=== PATIENT | female | born 1965 | race Caucasian/White ===

== ENCOUNTER 2017-07-21 14:05 | Inpatient (IN) | payer MEDICAID ==
[~2017-07-21] VITALS: Ht 172.7 cm; Wt 63.0 kg
[2017-07-21] MEDS ORDERED: Morphine Sulfate 4mg/ml Inj IVP ONE (14:45)
[2017-07-21 15:44] LABS: BASOPHILS % (AUTO) 0.6 % (0.0-2.0); EOSINOPHILS % (AUTO) 0.3 % (0.0-3.0); LYMPHOCYTES % (AUTO) 12.3 % (20.0-45.0); MEAN CORPUSCULAR HEMOGLOBIN 33.1 PG (27.0-31.0); MEAN CORPUSCULAR HGB CONC 32.5 G/DL (32.0-36.0); MEAN CORPUSCULAR VOLUME 102 FL (80-99); MEAN PLATELET VOLUME 6.7 FL (6.5-10.1); MONOCYTES % (AUTO) 3.3 % (1.0-10.0); NEUTROPHILS % (AUTO) 83.6 % (45.0-75.0); PLATELET COUNT 268 K/UL (150-450); RED BLOOD COUNT 4.07 M/UL (4.20-5.40); RED CELL DISTRIBUTION WIDTH 14.6 % (11.6-14.8); WHITE BLOOD COUNT 15.7 K/UL (4.8-10.8)
[2017-07-21] MEDS ORDERED: HYDROmorphone 1mg/ml Carpuject IVP ONE (15:45)
[2017-07-21 16:01] LABS: ALANINE AMINOTRANSFERASE 17 U/L (12-78); ALBUMIN/GLOBULIN RATIO 1.4 (1.0-2.7); ANION GAP 11 mmol/L (5-15); ASPARTATE AMINO TRANSFERASE 25 U/L (15-37); CALCIUM 9.4 MG/DL (8.5-10.1); CARBON DIOXIDE 25 MMOL/L (21-32); CHLORIDE 103 MMOL/L (98-107); CREATININE 0.5 MG/DL (0.55-1.30); GLOMERULAR FILTRATION RATE > 60 mL/min (>60); POTASSIUM 3.7 MMOL/L (3.5-5.1); SODIUM 139 MMOL/L (136-145); TOTAL PROTEIN 7.2 G/DL (6.4-8.2)
[2017-07-21 16:11] LABS: AMYLASE 1413 U/L (25-115); LIPASE 11922 U/L (73-393)
--- NOTE | 2017-07-21 17:30 | Emergency Room Report ---
History of Present Illness General Chief Complaint: Abdominal Pain Source: Patient Present Illness HPI The patient is a 52-year-old female presenting for abdominal pain. She admits to a history of acute pancreatitis diagnosed 3 months prior. She denies known cause for pancreatitis and states that she has not been on any treatment for it. She states abdominal pain began 2 hours prior to arrival described as a sharp 9/10 pain to the mid upper abdomen and radiates to the mid back. She also admits to nausea and vomiting after the pain again. No known provoking relieving factors. She denies other symptoms including fever, chills, shortness of breath, chest pain, dysuria, vaginal discharge, diarrhea, constipation Allergies: Coded Allergies: No Known Allergies (Unverified , 07/21/17) Patient History Past Medical History: see triage record Reviewed Nursing Documentation: PMH: Agreed, PSxH: Agreed Nursing Documentation-PMH Hx Gastrointestinal Problems: Yes - Pancreatitis Review of Systems All Other Systems: negative except mentioned in HPI Physical Exam Vital Signs Date Time Temp Pulse Resp B/P (MAP) Pulse Ox O2 Delivery O2 Flow Rate FiO2 07/21/17 14:16 98.4 88 18 150/90 98 Room Air Sp02 EP Interpretation: reviewed, normal General Appearance: no apparent distress, alert, GCS 15, non-toxic Head: normocephalic, atraumatic Eyes: bilateral eye normal inspection, bilateral eye PERRL ENT: hearing grossly normal, normal pharynx, no angioedema, normal voice Neck: full range of motion, supple/symm/no masses Respiratory: chest non-tender, lungs clear, normal breath sounds, speaking full sentences Cardiovascular #1: regular rate, rhythm, no edema Gastrointestinal: normal bowel sounds, soft, no mass, tenderness - epigastric Rectal: deferred Genitourinary: normal inspection, no CVA tenderness Musculoskeletal: back normal, gait/station normal, normal range of motion, non- tender Neurologic: alert, oriented x3, responsive, motor strength/tone normal, sensory intact, speech normal Psychiatric: judgement/insight normal, memory normal, mood/affect normal, no suicidal/homicidal ideation Skin: normal color, no rash, warm/dry, well hydrated Medical Decision Making PA Attestation Dr. Ng is my supervising physician. Patient management was discussed with my supervising physician Diagnostic Impression: Primary Impression: Pancreatitis Qualified Codes: K85.90 - Acute pancreatitis without necrosis or infection, unspecified ER Course The patient is a 52-year-old female presenting for abdominal pain. Differential diagnoses considered include but not limited to gastritis, pancreatitis, appendicitis, UTI, cholecystitis, among others PE: Afebrile. NAD Abdomen is soft. There is tenderness to palpation over the epigastric region. Normal bowel sounds. Nondistended. No CVA tenderness Blood work is consistent with acute pancreatitis with significantly elevated lipase. There is also leukocytosis. The patient is given IV fluids and pain medication and is feeling significantly better. She was informed of these results. She will be admitted to this hospital in serious but stable condition. Dr. Ng has spoken with admitting doctor. Laboratory Tests Test 07/21/17 15:00 White Blood Count 15.7 K/UL (4.8-10.8) H Red Blood Count 4.07 M/UL (4.20-5.40) L Hemoglobin 13.5 G/DL (12.0-16.0) Hematocrit 41.4 % (37.0-47.0) Mean Corpuscular Volume 102 FL (80-99) H Mean Corpuscular Hemoglobin 33.1 PG (27.0-31.0) H Mean Corpuscular Hemoglobin Concent 32.5 G/DL (32.0-36.0) Red Cell Distribution Width 14.6 % (11.6-14.8) Platelet Count 268 K/UL (150-450) Mean Platelet Volume 6.7 FL (6.5-10.1) Neutrophils (%) (Auto) 83.6 % (45.0-75.0) H Lymphocytes (%) (Auto) 12.3 % (20.0-45.0) L Monocytes (%) (Auto) 3.3 % (1.0-10.0) Eosinophils (%) (Auto) 0.3 % (0.0-3.0) Basophils (%) (Auto) 0.6 % (0.0-2.0) Prothrombin Time 10.0 SEC (9.30-11.50) Prothrombin Time INR 1.0 (0.9-1.1) PTT 23 SEC (23-33) Sodium Level 139 MMOL/L (136-145) Potassium Level 3.7 MMOL/L (3.5-5.1) Chloride Level 103 MMOL/L (98-107) Carbon Dioxide Level 25 MMOL/L (21-32) Anion Gap 11 mmol/L (5-15) Blood Urea Nitrogen 17 mg/dL (7-18) Creatinine 0.5 MG/DL (0.55-1.30) L Estimate Glomerular Filtration Rate > 60 mL/min (>60) Glucose Level 151 MG/DL (74-106) H Calcium Level 9.4 MG/DL (8.5-10.1) Total Bilirubin 0.3 MG/DL (0.2-1.0) Aspartate Amino Transferase (AST) 25 U/L (15-37) Alanine Aminotransferase (ALT) 17 U/L (12-78) Alkaline Phosphatase 74 U/L (46-116) Total Protein 7.2 G/DL (6.4-8.2) Albumin 4.2 G/DL (3.4-5.0) Globulin 3.0 g/dL Albumin/Globulin Ratio 1.4 (1.0-2.7) Amylase Level 1413 U/L (25-115) *H Lipase 44277 U/L (73-393) H Lab Results Impression consistent with acute pancreatitis CT/MRI/US Diagnostic Results CT/MRI/US Diagnostic Results : Imaging Test Ordered: ABD US Impression There is free fluid in the pancreatic area. Please see official report Last Vital Signs Date Time Temp Pulse Resp B/P (MAP) Pulse Ox O2 Delivery O2 Flow Rate FiO2 07/21/17 14:16 98.4 88 18 150/90 98 Room Air Status: improved Disposition: ADMITTED INPATIENT Condition: Serious Referrals: NOT CHOSEN IPA/,REFERRING (PCP) PHOENIX WORLEY Jul 21, 2017 17:30
[2017-07-21 17:37] VITALS: BP 150/90
[2017-07-21] MEDS ORDERED: Hydromorphone 0.5mg/0.5ml inj IVP ONE (18:00)
--- NOTE | 2017-07-21 18:00 | Diagnostic Imaging Report ---
Indication: Epigastric pain, elevated amylase and lipase Technique: Curry-scale and duplex images of the upper abdomen were obtained Comparison: None Findings: Gallbladder is unremarkable, without stones, wall thickening, nor pericholecystic fluid. Sonographic Brantley's sign is positive Common bile duct measures 11 mm in diameter. No intrahepatic biliary ductal dilatation. Liver demonstrates normal echogenicity. A cyst is seen within the left hepatic lobe which measures 18 mm in diameter. Portal vein and hepatic veins are patent. The pancreas is somewhat prominent. No discrete mass demonstrated. Fluid is seen in the ana maria hepatis region. Spleen is unremarkable. Left kidney measures 9.8 cm in length. Right kidney measures 10.5 cm length. Both kidneys demonstrate normal echogenicity. There is no hydronephrosis. No focal abnormality . Non-aneurysmal abdominal aorta . Impression: Prominent pancreas, fluid in the ana maria hepatis, likely related to stated clinical history of acute pancreatitis Negative for gallstones. Positive sonographic Brantley's sign may be due to the adjacent pancreatic abnormality, but the possibility of acalculous acute cholecystitis should be considered. Consider nuclear medicine hepatic biliary scanning for further evaluation if clinically indicated Dilated common bile duct. Downstream obstructive process not excludable. Consider MRCP for better characterization Incidental finding left lobar liver cyst
[2017-07-21] MEDS ORDERED: NORCO 5-325 TA1 EACH ORAL (18:39)
[2017-07-21] MEDS ORDERED: OMEPRAZOLE40 M1 ORAL (18:39)
[2017-07-21] MEDS ORDERED: LEXAPRO10 MG ORAL (18:39)
[2017-07-21 18:48] VITALS: BP 141/89
[2017-07-21] MEDS ORDERED: Nitroglycerin Subl 0.4mg tab SL PRN (21:15)
[2017-07-21] MEDS ORDERED: Mylanta II UD 30ml ORAL PRN (21:15)
[2017-07-21] MEDS ORDERED: Miralax 17gm pkt ORAL PRN (21:15)
[2017-07-21] MEDS ORDERED: Morphine Sulfate 2mg/ml Inj IVP PRN (21:15)
[2017-07-21] MEDS ORDERED: LORazepam Inj 2mg/ml 1ml IV PRN (21:15)
[2017-07-21] MEDS ORDERED: Norco 5mg/325mg tab ORAL PRN (21:15)
[2017-07-21] MEDS: HYDROmorphone 1mg/ml Carpuject IVP PRN (22:15)
[2017-07-21] MEDS: D5 1/2NS 1,000 ML IV SCH (22:15)
[2017-07-21 23:40] VITALS: BP 162/83
[2017-07-22] MEDS: HYDROmorphone 1mg/ml Carpuject IVP PRN ×8 (01:22→23:06)
[2017-07-22 04:36] VITALS: BP 147/81
[2017-07-22 07:08] LABS: MEAN CORPUSCULAR HEMOGLOBIN 35.2 PG (27.0-31.0); MEAN CORPUSCULAR VOLUME 101 FL (80-99); MEAN PLATELET VOLUME 7.3 FL (6.5-10.1); PLATELET COUNT 222 K/UL (150-450); RED BLOOD COUNT 3.62 M/UL (4.20-5.40); RED CELL DISTRIBUTION WIDTH 14.2 % (11.6-14.8); WHITE BLOOD COUNT 13.4 K/UL (4.8-10.8)
[2017-07-22] MEDS: Metoclopramide 10mg/2ml Inj IVP PRN ×2 (07:13→16:43)
[2017-07-22 07:52] LABS: ALANINE AMINOTRANSFERASE 17 U/L (12-78); ALBUMIN/GLOBULIN RATIO 1.3 (1.0-2.7); AMYLASE 218 U/L (25-115); ANION GAP 9 mmol/L (5-15); ASPARTATE AMINO TRANSFERASE 17 U/L (15-37); CALCIUM 8.6 MG/DL (8.5-10.1); CARBON DIOXIDE 26 MMOL/L (21-32); CHLORIDE 103 MMOL/L (98-107); CREATININE 0.5 MG/DL (0.55-1.30); GLOMERULAR FILTRATION RATE > 60 mL/min (>60); POTASSIUM 3.2 MMOL/L (3.5-5.1); SODIUM 138 MMOL/L (136-145); TOTAL PROTEIN 6.5 G/DL (6.4-8.2)
[2017-07-22 07:53] LABS: LIPASE 2152 U/L (73-393)
[2017-07-22] MEDS: Pantoprazole Inj IV SCH (08:19)
[2017-07-22] MEDS: D5 1/2NS 1,000 ML IV SCH (08:19)
[2017-07-22] MEDS: Escitalopram Oxalate 5mg tab ORAL SCH (08:20)
[2017-07-22 08:30] VITALS: BP 155/77
[2017-07-22] MEDS: Heparin 5000 units/ml inj SUBQ SCH ×2 (08:30→20:55)
[2017-07-22 08:56] LABS: BAND NEUTROPHILS % (MANUAL) 1 % (0-8); BASOPHILS % (MANUAL) 0 % (0-2); EOSINOPHILS % (MANUAL) 0 % (0-3); LYMPHOCYTES % (MANUAL) 4 % (20-45); NEUTROPHILS % (MANUAL) 89 % (45-75); PLATELET ESTIMATE ADEQUATE; PLATELET MORPHOLOGY NORMAL; TOTAL CELLS COUNTED 100
[2017-07-22 09:06] VITALS: BP 155/77
[2017-07-22 09:06] LABS: MACROCYTES 1+
[2017-07-22 09:36] LABS: CHOLESTEROL 211 MG/DL (< 200); CHOLESTEROL/HDL RATIO 2.5 (3.3-4.4)
[2017-07-22] MEDS ORDERED: Potassium Chloride 40 MEQ in Sodium Chloride 500ML 550 ML IV ONE (11:00)
[2017-07-22 12:37] VITALS: BP 150/89
--- NOTE | 2017-07-22 15:25 | GI Initial Consult Note ---
History of Present Illness General Date patient seen: Jul 22, 2017 Time patient seen: 14:00 Reason for Hospitalization: Abdominal Pain Referring physician: SANTHOSH BARKER Reason for Consultation: PANCREATITIS Present Illness HPI The patient is a 52-year-old female presenting for abdominal pain. She admits to a history of acute pancreatitis diagnosed 3 months prior. She denies known cause for pancreatitis and states that she has not been on any treatment for it. She states abdominal pain began 2 hours prior to arrival described as a sharp 9/10 pain to the mid upper abdomen and radiates to the mid back. She also admits to nausea and vomiting after the pain again. No known provoking relieving factors. She denies other symptoms including fever, chills, shortness of breath, chest pain, dysuria, vaginal discharge, diarrhea, constipation. GI consulted for pancreatitis. HPI as noted above. Pt seen on floor, awake A& Ox4 NAD with no active s/sx of N/V/D. C/o LUQ abdominal pain 7/10. Currently NPO + IVFs. Per patient, this is her 3rd episode of pancreatitis. Denies any drug use. Social tobacco and ETOH use. Patient presents with elevated lipase 12k+ and CBD dilation on U/S. She states she was suppose to have an EUS scheduled for a ?pancreatic mass prior but never got around to do it. No leukocytosis noted. Home Meds Reported Medications Hydrocodone Bit/Acetaminophen 5-325* ([place] 5-325*) 1 Each Tablet, 1 TAB ORAL Q6H Y for For Pain, #10 TAB 0 Refills 07/21/17 Escitalopram Oxalate* (LEXAPRO*) 10 Mg Tablet, 5 MG ORAL DAILY, TAB 07/21/17 Omeprazole (OMEPRAZOLE) 40 Mg Capsule.dr, 40 MG ORAL DAILY, CAP 07/21/17 Med list reviewed/reconciled: Yes Allergies: Coded Allergies: No Known Allergies (Unverified , 07/21/17) Patient History History Provided By: Patient, Medical Record PMH Narrative Past Medical History: see triage record Reviewed Nursing Documentation: PMH: Agreed, PSxH: Agreed Nursing Documentation-PMH Hx Gastrointestinal Problems: Yes - Pancreatitis Social History: Reports: smoking - on chantix, alcohol use - social Review of Systems All Other Systems: negative except mentioned in HPI Physical Exam Vital Signs Date Time Temp Pulse Resp B/P (MAP) Pulse Ox O2 Delivery O2 Flow Rate FiO2 07/21/17 14:16 98.4 88 18 150/90 98 Room Air Sp02 EP Interpretation: reviewed Labs Laboratory Tests Test 07/22/17 04:50 07/22/17 10:00 White Blood Count 13.4 K/UL (4.8-10.8) H Red Blood Count 3.62 M/UL (4.20-5.40) L Hemoglobin 12.7 G/DL (12.0-16.0) Hematocrit 36.4 % (37.0-47.0) L Mean Corpuscular Volume 101 FL (80-99) H Mean Corpuscular Hemoglobin 35.2 PG (27.0-31.0) H Mean Corpuscular Hemoglobin Concent 35.0 G/DL (32.0-36.0) Red Cell Distribution Width 14.2 % (11.6-14.8) Platelet Count 222 K/UL (150-450) Mean Platelet Volume 7.3 FL (6.5-10.1) Neutrophils (%) (Auto) % (45.0-75.0) Lymphocytes (%) (Auto) % (20.0-45.0) Monocytes (%) (Auto) % (1.0-10.0) Eosinophils (%) (Auto) % (0.0-3.0) Basophils (%) (Auto) % (0.0-2.0) Differential Total Cells Counted 100 Neutrophils % (Manual) 89 % (45-75) H Lymphocytes % (Manual) 4 % (20-45) L Monocytes % (Manual) 6 % (1-10) Eosinophils % (Manual) 0 % (0-3) Basophils % (Manual) 0 % (0-2) Band Neutrophils 1 % (0-8) Platelet Estimate Adequate Platelet Morphology Normal Macrocytosis 1+ Activated Partial Thromboplast Time 25 SEC (23-33) Sodium Level 138 MMOL/L (136-145) Potassium Level 3.2 MMOL/L (3.5-5.1) L Chloride Level 103 MMOL/L (98-107) Carbon Dioxide Level 26 MMOL/L (21-32) Anion Gap 9 mmol/L (5-15) Blood Urea Nitrogen 15 mg/dL (7-18) Creatinine 0.5 MG/DL (0.55-1.30) L Estimat Glomerular Filtration Rate > 60 mL/min (>60) Glucose Level 148 MG/DL (74-106) H Calcium Level 8.6 MG/DL (8.5-10.1) Total Bilirubin 0.3 MG/DL (0.2-1.0) Aspartate Amino Transf (AST/SGOT) 17 U/L (15-37) Alanine Aminotransferase (ALT/SGPT) 17 U/L (12-78) Alkaline Phosphatase 66 U/L (46-116) Total Protein 6.5 G/DL (6.4-8.2) Albumin 3.7 G/DL (3.4-5.0) Globulin 2.8 g/dL Albumin/Globulin Ratio 1.3 (1.0-2.7) Triglycerides Level 107 MG/DL (0-200) Cholesterol Level 211 MG/DL (< 200) H LDL Cholesterol 112 mg/dL (<100) H HDL Cholesterol 84 MG/DL (40-60) H Cholesterol/HDL Ratio 2.5 (3.3-4.4) L Amylase Level 218 U/L (25-115) H Lipase 2152 U/L (73-393) H Urine Opiates Screen Positive (NEGATIVE) H Urine Barbiturates Screen Negative (NEGATIVE) Phencyclidine (PCP) Screen Negative (NEGATIVE) Urine Amphetamines Screen Negative (NEGATIVE) Urine Benzodiazepines Screen Positive (NEGATIVE) H Urine Cocaine Screen Negative (NEGATIVE) Urine Marijuana (THC) Screen Negative (NEGATIVE) General Appearance: well appearing, no apparent distress, alert Head: normocephalic EENT: PERRL/EOMI, normal ENT inspection Neck: normal inspection, full range of motion, supple Respiratory: lungs clear, normal breath sounds, no respiratory distress Cardiovascular: normal rate Gastrointestinal: soft, normal bowel sounds Genitourinary: no CVA tenderness Musculoskeletal: normal inspection, back normal Neurologic: normal inspection, alert, oriented x3, responsive Psychiatric: normal inspection, judgement/insight normal, memory normal Skin: normal inspection, normal color, no rash, warm/dry Lymphatic: normal inspection, no adenopathy Current Medications Current Medications Medications (Trade) Dose Ordered Sig/Kwesi Route PRN Reason Start Time Stop Time Status Last Admin Dose Admin Acetaminophen (Tylenol) 650 mg Q4H PRN ORAL fever 07/21/17 21:15 08/20/17 21:14 Acetaminophen/ Hydrocodone Bitart ([place] 5/325) 1 tab Q6H PRN ORAL For Pain Scale 4-6 07/21/17 21:15 07/28/17 21:14 Al Hydroxide/Mg Hydroxide (Mylanta II) 30 ml Q6H PRN ORAL dyspepsia 07/21/17 21:15 08/20/17 21:14 Dextrose (Dextrose 50%) STAT PRN IV Hypoglycemia 07/21/17 21:15 08/20/17 21:14 Dextrose/Sodium Chloride 1,000 ml @ 75 mls/hr [id number] IV 07/21/17 22:00 08/20/17 21:59 07/22/17 08:19 Diphenhydramine HCl (Benadryl) 25 mg Q6H PRN ORAL Itching/Pruritis 07/21/17 21:15 08/20/17 21:14 Escitalopram Oxalate (Lexapro) 5 mg DAILY ORAL 07/22/17 09:00 08/21/17 08:59 07/22/17 08:20 Heparin Sodium (Porcine) (Heparin 5000 units/ml) 5,000 units EVERY 12 HOURS SUBQ 07/22/17 09:00 08/21/17 08:59 07/22/17 08:30 Hydromorphone HCl (Dilaudid) 1 mg Q3H PRN IVP Severe Pain (Pain Scale 7-10) 07/22/17 10:30 07/29/17 10:29 07/22/17 13:42 Lorazepam (Ativan 2mg/ml 1ml) 1 mg Q4H PRN IV agitation 07/21/17 21:15 07/28/17 21:14 Metoclopramide HCl (Reglan) 10 mg Q6H PRN IVP SEVERE NAUSEA 07/21/17 21:15 08/20/17 21:14 07/22/17 07:13 Nitroglycerin (Ntg) 0.4 mg Q5M X 3 DOSES PRN SL Prn Chest Pain 07/21/17 21:15 08/20/17 21:14 Ondansetron HCl (Zofran) 4 mg Q6H PRN IVP Nausea & Vomiting 07/21/17 21:15 08/20/17 21:14 07/22/17 10:31 Pantoprazole (Protonix) 40 mg DAILY IV 07/22/17 09:00 08/21/17 08:59 07/22/17 08:19 Polyethylene Glycol (Miralax) 17 gm HSPRN PRN ORAL Constipation 07/21/17 21:15 08/20/17 21:14 Promethazine HCl (Phenergan) 25 mg Q8H PRN IV refractory nausea 07/21/17 21:15 08/20/17 21:14 Temazepam (Restoril) 15 mg HSPRN PRN ORAL Insomnia 07/21/17 21:15 07/28/17 21:14 07/21/17 23:00 GI: Plan Problems: (1) Pancreatitis Plan abdominal U/S reviewed >> CBD dilation 11mm elevated lipase over 12k!, now 2200. utox unremarkable triglyceride level WNL maintain strict NPO + IVFs pain mgmt ordered MRCP ordered [id number] ppi fu labs Discussed with Dr. Contreras. Thank you for this patient referral, we will follow. Fina Leal N.P. Jul 22, 2017 15:25
[2017-07-22 16:02] VITALS: BP 148/85
--- NOTE | 2017-07-22 16:37 | History and Physical ---
History of Present Illness General Date patient seen: Jul 22, 2017 Reason for Hospitalization: Abdominal Pain Present Illness HPI 52 year old female with hx of reucrrent pancreatitis, visiting from [place], presented to ER with CC of abdominal pain and bloating. Her amylase was in thousands and she is admitted for further evaluation. Allergies: Coded Allergies: No Known Allergies (Unverified , 07/21/17) Medication History Scheduled Escitalopram Oxalate* (Lexapro*), 5 MG ORAL DAILY, (Reported) Omeprazole (Omeprazole), 40 MG ORAL DAILY, (Reported) Scheduled PRN Hydrocodone Bit/Acetaminophen 5-325* ([place] 5-325*), 1 TAB ORAL Q6H PRN for For Pain, (Reported) Patient History Healthcare decision maker N Resuscitation status Full Code Advanced Directive on File No Past Medical/Surgical History Past Medical/Surgical History: (1) Pancreatitis Review of Systems All Other Systems: negative except mentioned in HPI Physical Exam General Appearance: WD/WN Lines, tubes and drains: peripheral, central line HEENT: normocephalic, atraumatic Neck: non-tender, normal alignment Respiratory/Chest: chest wall non-tender, lungs clear Abdomen: non tender Genitourinary/Rectal: normal genital exam Last 24 Hour Vital Signs Date Time Temp Pulse Resp B/P (MAP) Pulse Ox O2 Delivery O2 Flow Rate FiO2 07/22/17 16:02 98.2 95 18 148/85 97 Room Air 07/22/17 12:37 97.2 92 18 150/89 97 Room Air 07/22/17 08:30 98.1 81 18 155/77 97 Room Air 07/22/17 04:36 97.9 94 18 147/81 Room Air 07/21/17 23:40 98.1 88 18 162/83 96 Room Air 07/21/17 18:48 98.4 71 18 141/89 98 Room Air 07/21/17 18:39 98.4 76 18 150/90 98 Room Air 07/21/17 18:16 98.4 07/21/17 17:37 98.4 76 18 150/90 98 Room Air 07/21/17 17:24 98.4 07/21/17 17:24 98.4 Intake and Output 07/22/17 07/23/17 19:00 07:00 Intake Total 795.0 ml Balance 795.0 ml Intake IV Total 795.0 ml Laboratory Tests Test 07/22/17 04:50 07/22/17 10:00 White Blood Count 13.4 K/UL (4.8-10.8) H Red Blood Count 3.62 M/UL (4.20-5.40) L Hemoglobin 12.7 G/DL (12.0-16.0) Hematocrit 36.4 % (37.0-47.0) L Mean Corpuscular Volume 101 FL (80-99) H Mean Corpuscular Hemoglobin 35.2 PG (27.0-31.0) H Mean Corpuscular Hemoglobin Concent 35.0 G/DL (32.0-36.0) Red Cell Distribution Width 14.2 % (11.6-14.8) Platelet Count 222 K/UL (150-450) Mean Platelet Volume 7.3 FL (6.5-10.1) Neutrophils (%) (Auto) % (45.0-75.0) Lymphocytes (%) (Auto) % (20.0-45.0) Monocytes (%) (Auto) % (1.0-10.0) Eosinophils (%) (Auto) % (0.0-3.0) Basophils (%) (Auto) % (0.0-2.0) Differential Total Cells Counted 100 Neutrophils % (Manual) 89 % (45-75) H Lymphocytes % (Manual) 4 % (20-45) L Monocytes % (Manual) 6 % (1-10) Eosinophils % (Manual) 0 % (0-3) Basophils % (Manual) 0 % (0-2) Band Neutrophils 1 % (0-8) Platelet Estimate Adequate Platelet Morphology Normal Macrocytosis 1+ Activated Partial Thromboplast Time 25 SEC (23-33) Sodium Level 138 MMOL/L (136-145) Potassium Level 3.2 MMOL/L (3.5-5.1) L Chloride Level 103 MMOL/L (98-107) Carbon Dioxide Level 26 MMOL/L (21-32) Anion Gap 9 mmol/L (5-15) Blood Urea Nitrogen 15 mg/dL (7-18) Creatinine 0.5 MG/DL (0.55-1.30) L Estimat Glomerular Filtration Rate > 60 mL/min (>60) Glucose Level 148 MG/DL (74-106) H Calcium Level 8.6 MG/DL (8.5-10.1) Total Bilirubin 0.3 MG/DL (0.2-1.0) Aspartate Amino Transf (AST/SGOT) 17 U/L (15-37) Alanine Aminotransferase (ALT/SGPT) 17 U/L (12-78) Alkaline Phosphatase 66 U/L (46-116) Total Protein 6.5 G/DL (6.4-8.2) Albumin 3.7 G/DL (3.4-5.0) Globulin 2.8 g/dL Albumin/Globulin Ratio 1.3 (1.0-2.7) Triglycerides Level 107 MG/DL (0-200) Cholesterol Level 211 MG/DL (< 200) H LDL Cholesterol 112 mg/dL (<100) H HDL Cholesterol 84 MG/DL (40-60) H Cholesterol/HDL Ratio 2.5 (3.3-4.4) L Amylase Level 218 U/L (25-115) H Lipase 2152 U/L (73-393) H Urine Opiates Screen Positive (NEGATIVE) H Urine Barbiturates Screen Negative (NEGATIVE) Phencyclidine (PCP) Screen Negative (NEGATIVE) Urine Amphetamines Screen Negative (NEGATIVE) Urine Benzodiazepines Screen Positive (NEGATIVE) H Urine Cocaine Screen Negative (NEGATIVE) Urine Marijuana (THC) Screen Negative (NEGATIVE) Height (Feet): 5 Height (Inches): 8.00 Weight (Pounds): 139 Medications Current Medications Medications (Trade) Dose Ordered Sig/Kwesi Route PRN Reason Start Time Stop Time Status Last Admin Dose Admin Acetaminophen (Tylenol) 650 mg Q4H PRN ORAL fever 07/21/17 21:15 08/20/17 21:14 Acetaminophen/ Hydrocodone Bitart ([place] 5/325) 1 tab Q6H PRN ORAL For Pain Scale 4-6 07/21/17 21:15 07/28/17 21:14 Al Hydroxide/Mg Hydroxide (Mylanta II) 30 ml Q6H PRN ORAL dyspepsia 07/21/17 21:15 08/20/17 21:14 Dextrose (Dextrose 50%) STAT PRN IV Hypoglycemia 07/21/17 21:15 08/20/17 21:14 Dextrose/Sodium Chloride 1,000 ml @ 75 mls/hr [id number] IV 07/21/17 22:00 08/20/17 21:59 07/22/17 08:19 Diphenhydramine HCl (Benadryl) 25 mg Q6H PRN ORAL Itching/Pruritis 07/21/17 21:15 08/20/17 21:14 Escitalopram Oxalate (Lexapro) 5 mg DAILY ORAL 07/22/17 09:00 08/21/17 08:59 07/22/17 08:20 Heparin Sodium (Porcine) (Heparin 5000 units/ml) 5,000 units EVERY 12 HOURS SUBQ 07/22/17 09:00 08/21/17 08:59 07/22/17 08:30 Hydromorphone HCl (Dilaudid) 1 mg Q3H PRN IVP Severe Pain (Pain Scale 7-10) 07/22/17 10:30 07/29/17 10:29 07/22/17 13:42 Lorazepam (Ativan 2mg/ml 1ml) 1 mg Q4H PRN IV agitation 07/21/17 21:15 07/28/17 21:14 Metoclopramide HCl (Reglan) 10 mg Q6H PRN IVP SEVERE NAUSEA 07/21/17 21:15 08/20/17 21:14 07/22/17 07:13 Nitroglycerin (Ntg) 0.4 mg Q5M X 3 DOSES PRN SL Prn Chest Pain 07/21/17 21:15 08/20/17 21:14 Ondansetron HCl (Zofran) 4 mg Q6H PRN IVP Nausea & Vomiting 07/21/17 21:15 08/20/17 21:14 07/22/17 10:31 Pantoprazole (Protonix) 40 mg DAILY IV 07/22/17 09:00 08/21/17 08:59 07/22/17 08:19 Polyethylene Glycol (Miralax) 17 gm HSPRN PRN ORAL Constipation 07/21/17 21:15 08/20/17 21:14 Promethazine HCl (Phenergan) 25 mg Q8H PRN IV refractory nausea 07/21/17 21:15 08/20/17 21:14 Temazepam (Restoril) 15 mg HSPRN PRN ORAL Insomnia 07/21/17 21:15 07/28/17 21:14 07/21/17 23:00 Assessment/Plan Problem List: (1) Pancreatitis ICD Codes: K85.90 - Acute pancreatitis without necrosis or infection, unspecified SNOMED: [id number] Qualifiers: Qualified Codes: K85.90 - Acute pancreatitis without necrosis or infection, unspecified Assessment/Plan NPO IV fluids GI evaluation prn analgesics SANTHOSH MAHER Jul 22, 2017 16:37
[2017-07-22 23:58] VITALS: BP 162/95
[2017-07-23] MEDS: D5 1/2NS 1,000 ML IV SCH ×2 (00:40→05:15)
[2017-07-23] MEDS: HYDROmorphone 1mg/ml Carpuject IVP PRN ×8 (02:11→23:50)
[2017-07-23 04:40] VITALS: BP 136/83
[2017-07-23 07:49] LABS: BASOPHILS % (AUTO) 0.4 % (0.0-2.0); EOSINOPHILS % (AUTO) 0.4 % (0.0-3.0); LYMPHOCYTES % (AUTO) 18.3 % (20.0-45.0); MEAN CORPUSCULAR HEMOGLOBIN 35.1 PG (27.0-31.0); MEAN CORPUSCULAR HGB CONC 34.4 G/DL (32.0-36.0); MEAN CORPUSCULAR VOLUME 102 FL (80-99); MEAN PLATELET VOLUME 7.7 FL (6.5-10.1); MONOCYTES % (AUTO) 8.5 % (1.0-10.0); NEUTROPHILS % (AUTO) 72.4 % (45.0-75.0); PLATELET COUNT 191 K/UL (150-450); RED BLOOD COUNT 3.33 M/UL (4.20-5.40); RED CELL DISTRIBUTION WIDTH 14.1 % (11.6-14.8); WHITE BLOOD COUNT 10.3 K/UL (4.8-10.8)
[2017-07-23 07:52] LABS: ANION GAP 8 mmol/L (5-15); CALCIUM 8.9 MG/DL (8.5-10.1); CARBON DIOXIDE 29 MMOL/L (21-32); CHLORIDE 104 MMOL/L (98-107); CREATININE 0.5 MG/DL (0.55-1.30); GLOMERULAR FILTRATION RATE > 60 mL/min (>60); POTASSIUM 2.9 MMOL/L (3.5-5.1); SODIUM 141 MMOL/L (136-145)
[2017-07-23] MEDS: Escitalopram Oxalate 5mg tab ORAL SCH (08:08)
[2017-07-23] MEDS: Pantoprazole Inj IV SCH (08:08)
[2017-07-23] MEDS: Heparin 5000 units/ml inj SUBQ SCH ×2 (08:16→20:21)
[2017-07-23 08:26] VITALS: BP 153/81
[2017-07-23 08:28] LABS: FOLIC ACID 15.6 NG/ML (3.1-17.5)
--- NOTE | 2017-07-23 10:19 | Diagnostic Imaging Report ---
Indication: Abdominal pain, dilated, and bile duct on recent ultrasound Technique: Coronal and axial single shot fast spin-echo breath-hold, axial T2 FRFSE, 2-D thick slab MRCP, AXIAL 2-D FIESTA fat saturated, axial 3-D dual echo breath-hold, water weighted axial LAVA FLEX, revealed 3-D MRCP images were obtained of the abdomen. MIP reconstructions were generated of the bile ducts Comparison: Reference made to ultrasound of 07/21/2017 Findings: Common bile duct is mildly ectatic, measuring 8 mm in diameter. Minimal if any central intrahepatic biliary ductal dilatation. No definite intraluminal filling defects. Common bile duct appears to taper to normal caliber at the level the ampulla. No definite pancreatic or axillary mass. The pancreatic duct is somewhat prominent. No gallstones are demonstrated. No gallbladder distention or gallbladder wall thickening. There is mild prominence of the pancreas. There is considerable fluid in the peripancreatic fat, extending down both paracolic gutters, anterior Gerota's fascia, and along the mesenteric root. There is trace free intraperitoneal fluid. There is a duodenal diverticulum. A cyst is seen within segment 2 of the liver. A second tiny cyst is seen in the dome of segment 8. The spleen, adrenals, kidneys are unremarkable. Bilateral basilar pulmonary parenchymal consolidation and atelectasis Impression: Mild extra hepatic biliary ductal ectasia, without definite downstream obstructing lesion. Significance of this finding uncertain, possibly baseline for this patient. No definite intra-ductal calculi. No evidence of gallstones. Fairly extensive peripancreatic fluid, likely phlegmon related to known history of acute pancreatitis Trace free intraperitoneal fluid Incidental findings of liver cysts, duodenal diverticulum
[2017-07-23 12:18] VITALS: BP 141/76
--- NOTE | 2017-07-23 14:17 | Diagnostic Imaging Report ---
Clinical Indication: Mid and upper abdominal pain radiating to the mid back, history of acute pancreatitis Technique: No oral contrast utilized, per emergency room physician request IV administration nonionic contrast. Venous phase spiral acquisition obtained through the abdomen and pelvis. Multiplanar reconstructions were generated. Total dose length product 1239 mGycm. CTDIvol(s) 8, 48, 13, 16 mGy. Dose reduction achieved using automated exposure control Comparison: MRI abdomen dated 07/22/2016, ultrasound abdomen 07/21/2015 Findings: The pancreas demonstrates a small focus of low attenuation in the pancreatic head/body junction. The remainder of the pancreas demonstrates normal morphology and enhancement. However, there is fluid seen within the peripancreatic fat, the mesenteric root, the mesenteric leaves, and along the anterior Gerota's fascia bilaterally. Free fluid is seen over the dome of the liver and within the pelvis. No focal fluid collections are demonstrated. The gallbladder is mildly distended, but no stones or wall thickening are demonstrated. The extrahepatic bile ducts are ectatic, common bile duct measuring up to 9 mm diameter. No intrahepatic biliary ductal dilatation. The pancreatic duct is somewhat prominent. The liver demonstrates focal fatty change in the usual location adjacent to the fissure for the ligamentum teres. There is a 2 cm cyst in segment tube. There is a subcentimeter low-attenuation lesion, demonstrated to be cystic on recent MRI, in segment 8. The spleen, adrenals, kidneys are unremarkable. No pelvic mass or adenopathy. The uterus is not evident, presumed surgically absent. The appendix is normal. No small bowel distention or small bowel wall thickening. Contrast is seen throughout the entirety of the small bowel and throughout the entirety of the colon. No evidence of diverticulosis or diverticulitis. No free intraperitoneal air. There is of atelectasis are seen at both lung bases. The bones are unremarkable. Impression: Evidence of peripancreatic edema/phlegmon, consistent with nonnecrotizing nonhemorrhagic acute pancreatitis. Focal area of low attenuation within the pancreatic head/body junction, probably area of inflammation related to the pancreatitis. Mass much less likely. Nonetheless, this area should be followed up Free intraperitoneal fluid, presumably related to the above Atelectatic changes Evidence of prior hysterectomy The CT scanner at [facility] is accredited by the [employer] and the scans are performed using protocols designed to limit radiation exposure to as low as reasonably achievable to attain images of sufficient resolution adequate for diagnostic evaluation.
[2017-07-23] MEDS ORDERED: D5 1/2NS 1000ml IV ONE ×2 (15:58→15:59)
[2017-07-23] MEDS ORDERED: Tubing IV Secondary IV ONE (15:59)
[2017-07-23 16:08] VITALS: BP 152/94
--- NOTE | 2017-07-23 18:52 | GI Progress Note ---
Assessment/Plan Problems: (1) Pancreatitis ICD Codes: K85.90 - Acute pancreatitis without necrosis or infection, unspecified SNOMED: 64106880 Qualifiers: Qualified Codes: K85.90 - Acute pancreatitis without necrosis or infection, unspecified Status: unchanged Status Narrative Discussed with Dr. Contreras. Assessment/Plan abdominal U/S reviewed >> CBD dilation 11mm CT AP reviewed >> Evidence of peripancreatic edema/phlegmon, consistent with nonnecrotizing nonhemorrhagic acute pancreatitis. Focal area of low attenuation within the pancreatic head/body junction, probably area of inflammation related to the pancreatitis. Mass much less likely. MRCP reviewed >> Mild extra hepatic biliary ductal ectasia, without definite downstream obstructing lesion. elevated lipase >> downtrending utox unremarkable triglyceride level WNL trial CLD tonight + IVFs pain mgmt fu CA19-9 ppi fu labs Subjective Gastrointestinal/Abdominal: Reports: abdominal pain Objective Last 24 Hour Vital Signs Date Time Temp Pulse Resp B/P (MAP) Pulse Ox O2 Delivery O2 Flow Rate FiO2 07/23/17 16:08 98.4 87 20 152/94 97 Room Air 07/23/17 12:18 98.8 76 20 141/76 94 Room Air 07/23/17 08:26 98.4 75 20 153/81 96 Room Air 07/23/17 04:40 98.1 81 18 136/83 95 Room Air 07/22/17 23:58 98.4 87 18 162/95 97 Room Air Intake and Output 07/23/17 07/24/17 19:00 07:00 Intake Total 705 ml Balance 705 ml Intake IV Total 705 ml # Voids 3 Laboratory Tests Test 07/23/17 05:20 White Blood Count 10.3 K/UL (4.8-10.8) Red Blood Count 3.33 M/UL (4.20-5.40) L Hemoglobin 11.7 G/DL (12.0-16.0) L Hematocrit 33.9 % (37.0-47.0) L Mean Corpuscular Volume 102 FL (80-99) H Mean Corpuscular Hemoglobin 35.1 PG (27.0-31.0) H Mean Corpuscular Hemoglobin Concent 34.4 G/DL (32.0-36.0) Red Cell Distribution Width 14.1 % (11.6-14.8) Platelet Count 191 K/UL (150-450) Mean Platelet Volume 7.7 FL (6.5-10.1) Neutrophils (%) (Auto) 72.4 % (45.0-75.0) Lymphocytes (%) (Auto) 18.3 % (20.0-45.0) L Monocytes (%) (Auto) 8.5 % (1.0-10.0) Eosinophils (%) (Auto) 0.4 % (0.0-3.0) Basophils (%) (Auto) 0.4 % (0.0-2.0) Sodium Level 141 MMOL/L (136-145) Potassium Level 2.9 MMOL/L (3.5-5.1) L Chloride Level 104 MMOL/L (98-107) Carbon Dioxide Level 29 MMOL/L (21-32) Anion Gap 8 mmol/L (5-15) Blood Urea Nitrogen 7 mg/dL (7-18) Creatinine 0.5 MG/DL (0.55-1.30) L Estimat Glomerular Filtration Rate > 60 mL/min (>60) Glucose Level 107 MG/DL (74-106) H Calcium Level 8.9 MG/DL (8.5-10.1) Amylase Level 132 U/L (25-115) H Lipase 1017 U/L (73-393) H Vitamin B12 Level 599 PG/ML (193-986) Folate 15.6 NG/ML (3.1-17.5) Height (Feet): 5 Height (Inches): 8.00 Weight (Pounds): 139 General Appearance: WD/WN, no apparent distress, alert Cardiovascular: normal rate Respiratory/Chest: normal breath sounds, no respiratory distress Abdominal Exam: normal bowel sounds, non tender, soft Extremities: normal range of motion, non-tender Fina Leal N.P. Jul 23, 2017 18:52
[2017-07-23 19:57] VITALS: BP 145/81
--- NOTE | 2017-07-23 22:21 | Pulmonology Progress Note ---
Assessment/Plan Problems: (1) Pancreatitis Assessment/Plan CT reviewed Evidence of peripancreatic edema/phlegmon, consistent with nonnecrotizing nonhemorrhagic acute pancreatitis. symptomtic treatemnt iv fluids pain control Subjective ROS Limited/Unobtainable: No Constitutional: Reports: no symptoms HEENT: Repors: no symptoms Allergies: Coded Allergies: No Known Allergies (Unverified , 07/21/17) Objective Last 24 Hour Vital Signs Date Time Temp Pulse Resp B/P (MAP) Pulse Ox O2 Delivery O2 Flow Rate FiO2 07/23/17 19:57 98.1 86 20 145/81 95 Room Air 07/23/17 16:08 98.4 87 20 152/94 97 Room Air 07/23/17 12:18 98.8 76 20 141/76 94 Room Air 07/23/17 08:26 98.4 75 20 153/81 96 Room Air 07/23/17 04:40 98.1 81 18 136/83 95 Room Air 07/22/17 23:58 98.4 87 18 162/95 97 Room Air Intake and Output 07/23/17 07/24/17 19:00 07:00 Intake Total 780 ml Balance 780 ml Intake IV Total 780 ml # Voids 3 General Appearance: WD/WN HEENT: normocephalic, atraumatic Respiratory/Chest: chest wall non-tender, lungs clear Breasts: no masses Cardiovascular: normal peripheral pulses Abdomen: normal bowel sounds, soft, non tender Genitourinary: normal external genitalia Extremities: no cyanosis Neurologic/Psychiatric: practice director II-XII grossly normal Laboratory Tests 07/23/17 05:20: White Blood Count 10.3, Red Blood Count 3.33L, Hemoglobin 11.7L, Hematocrit 33.9L, Mean Corpuscular Volume 102H, Mean Corpuscular Hemoglobin 35.1H, Mean Corpuscular Hemoglobin Concent 34.4, Red Cell Distribution Width 14.1, Platelet Count 191, Mean Platelet Volume 7.7, Neutrophils (%) (Auto) 72.4, Lymphocytes (% ) (Auto) 18.3L, Monocytes (%) (Auto) 8.5, Eosinophils (%) (Auto) 0.4, Basophils (%) (Auto) 0.4, Sodium Level 141, Potassium Level 2.9L, Chloride Level 104, Carbon Dioxide Level 29, Anion Gap 8, Blood Urea Nitrogen 7, Creatinine 0.5L, Estimat Glomerular Filtration Rate > 60, Glucose Level 107H, Calcium Level 8.9, Amylase Level 132H, Lipase 1017H, Vitamin B12 Level 599, Folate 15.6 Current Medications Medications (Trade) Dose Ordered Sig/Kwesi Route PRN Reason Start Time Stop Time Status Last Admin Dose Admin Acetaminophen (Tylenol) 650 mg Q4H PRN ORAL fever 07/21/17 21:15 08/20/17 21:14 Acetaminophen/ Hydrocodone Bitart ([place] 5/325) 1 tab Q6H PRN ORAL For Pain Scale 4-6 07/21/17 21:15 07/28/17 21:14 Al Hydroxide/Mg Hydroxide (Mylanta II) 30 ml Q6H PRN ORAL dyspepsia 07/21/17 21:15 08/20/17 21:14 Dextrose (Dextrose 50%) STAT PRN IV Hypoglycemia 07/21/17 21:15 08/20/17 21:14 Dextrose/Sodium Chloride 1,000 ml @ 75 mls/hr [id number] IV 07/21/17 22:00 08/20/17 21:59 07/23/17 05:15 Diphenhydramine HCl (Benadryl) 25 mg Q6H PRN ORAL Itching/Pruritis 07/21/17 21:15 08/20/17 21:14 Escitalopram Oxalate (Lexapro) 5 mg DAILY ORAL 07/22/17 09:00 08/21/17 08:59 07/23/17 08:08 Heparin Sodium (Porcine) (Heparin 5000 units/ml) 5,000 units EVERY 12 HOURS SUBQ 07/22/17 09:00 08/21/17 08:59 07/23/17 20:21 Hydromorphone HCl (Dilaudid) 1 mg Q3H PRN IVP Severe Pain (Pain Scale 7-10) 07/22/17 10:30 07/29/17 10:29 07/23/17 20:35 Lorazepam (Ativan 2mg/ml 1ml) 1 mg Q4H PRN IV agitation 07/21/17 21:15 07/28/17 21:14 Metoclopramide HCl (Reglan) 10 mg Q6H PRN IVP SEVERE NAUSEA 07/21/17 21:15 08/20/17 21:14 07/22/17 16:43 Nitroglycerin (Ntg) 0.4 mg Q5M X 3 DOSES PRN SL Prn Chest Pain 07/21/17 21:15 08/20/17 21:14 Ondansetron HCl (Zofran) 4 mg Q6H PRN IVP Nausea & Vomiting 07/21/17 21:15 08/20/17 21:14 07/23/17 20:19 Pantoprazole (Protonix) 40 mg DAILY IV 07/22/17 09:00 08/21/17 08:59 07/23/17 08:08 Polyethylene Glycol (Miralax) 17 gm HSPRN PRN ORAL Constipation 07/21/17 21:15 08/20/17 21:14 Promethazine HCl (Phenergan) 25 mg Q8H PRN IV refractory nausea 07/21/17 21:15 08/20/17 21:14 Temazepam (Restoril) 15 mg HSPRN PRN ORAL Insomnia 07/21/17 21:15 07/28/17 21:14 07/23/17 20:18 SANTHOSH MAHER Jul 23, 2017 22:21
--- NOTE | 2017-07-23 22:26 | Consultation ---
Consult Note Consult Note ID CONSULT: Nettie# [id number] Assessment/Plan ASSESSMENT: 52 y/o female with: // Recurrent pancreatitis ?EtOH (3rd episode) - symptomatically improving, dec lipase. CA 19-9 pending - CT A/P: Evidence of peripancreatic edema/phlegmon, consistent with nonnecrotizing nonhemorrhagic acute pancreatitis. Focal area of low attenuation within the pancreatic head/body junction, probably area of inflammation related to the pancreatitis. Mass much less likely. - MRCP: Mild extra hepatic biliary ductal ectasia, without definite downstream obstructing lesion. Significance of this finding uncertain, possibly baseline for this patient. No definite intra-ductal calculi. No evidence of gallstones. - no gallstones, hypertriglyceridemia or hypercalcemia // SIRS 2/2 above // Leukocytosis - resolved, afebrile // Hypokalemia // NKDA // Full Code PLAN: - no role for ABX at this time - check HIV, hepatitis panel - consider autoimmune w/u - f/u CA 19-9 - monitor CBC, temperatures - monitor BMP - supportive care - GI f/u ?ERCP Thanks! Will follow MIRIAM CHÁVEZ Jul 23, 2017 22:26
[2017-07-24] VITALS: BP 133/78
[2017-07-24] MEDS: HYDROmorphone 1mg/ml Carpuject IVP PRN ×2 (02:21→05:40)
[2017-07-24] MEDS: D5 1/2NS 1,000 ML IV SCH ×2 (02:44→16:40)
[2017-07-24 04:00] VITALS: BP 116/64
--- NOTE | 2017-07-24 04:00 | Consultation ---
DATE OF CONSULTATION: 07/23/2017 INFECTIOUS DISEASE CONSULTATION CONSULTING PHYSICIAN: Steve Pacheco M.D. REQUESTING PHYSICIAN: Torrey Fox M.D. REASON FOR CONSULTATION: Pancreatitis and leukocytosis. HISTORY OF PRESENT ILLNESS: This is a 52-year-old female, visiting from [place] with history of pancreatitis, admitted on 07/21/2017 with abdominal pain, nausea, and vomiting. Her lipase is significantly elevated and CT imaging is consistent with recurrent acute pancreatitis. She initially had a leukocytosis that has now normalized and has been afebrile. She has no evidence of gallstones, hypertriglyceridemia, or hypercalcemia. She did endorse some alcohol intake with previous episode. She is currently not receiving any antibiotics and ID now consulted to assist in management. PAST MEDICAL HISTORY: 1. Depression. 2. Recurrent pancreatitis. PAST SURGICAL HISTORY: Hysterectomy. MEDICATIONS: 1. No antibiotics. 2. Lexapro. 3. Dilaudid. 4. Heparin. ALLERGIES: No known drug allergies. SOCIAL HISTORY: The patient lives in [place]. Occasional alcohol use. FAMILY HISTORY: Reviewed and noncontributory. REVIEW OF SYSTEMS: As per history of present illness. Ten systems reviewed. All pertinent positives and negatives noted. PHYSICAL EXAMINATION: VITAL SIGNS: Maximum temperature 98.4 degrees, blood pressure 145/81, heart rate in the 80s, respiratory rate 20, and saturating 95% on room air. GENERAL: No apparent distress. Nontoxic appearing. CARDIOVASCULAR: Regular rate and rhythm. No murmurs. PULMONARY: Clear to auscultation bilaterally. ABDOMEN: Bowel sounds present. Soft and nondistended with mild diffuse tenderness to palpation. EXTREMITY: No edema. SKIN: No rash. NEUROLOGICAL: Alert and oriented x3, nonfocal. LABORATORY DATA: White blood cell count 10.3, decreased from 15.7, hemoglobin 11.7, and platelets 191,000. Sodium 141, potassium 2.9, chloride 104, bicarbonate 29, BUN 7, creatinine 0.5, and glucose 107. Liver function tests within normal limits. Lipase elevated. Urine drug screen, positive for opiates and benzodiazepines. MICROBIOLOGY: None. IMAGING: Reviewed. ASSESSMENT: 1. Recurrent pancreatitis, question alcohol induced. This is the patient's third episode. She is symptomatically improving and lipase is down trending. CT of abdomen and pelvis is consistent with peripancreatic edema and phlegmon consistent with non-necrotizing and nonhemorrhagic acute pancreatitis. There is a focal area of low attenuation within the pancreatic head, which may be inflammatory and mass is much less likely. MRCP shows mild extrahepatic biliary ductal ectasia without definite downstream obstructing lesion. There is no evidence of a gallstone hypertriglyceridemia or hypercalcemia. CA-19-9 antigen is pending. 2. Systemic inflammatory response syndrome, secondary to above. 3. Leukocytosis, resolved and afebrile. 4. Hypokalemia. 5. No known drug allergies. 6. Full Code. PLAN: 1. No role for antibiotics at this time. 2. Check human immunodeficiency virus and hepatitis panel. 3. Consider autoimmune workup. 4. Follow up CA-19-9. 5. Monitor CBC and temperatures. 6. Monitor BMP. 7. Supportive care. 8. Gastrointestinal follow up, question the role for ERCP. Thank you. We will follow. Steve Pacheco M.D. DR: HSANKAR JOB#: [id number] CC: Torrey Fox M.D.; Fax#: [phone] Steve Pacheco M.D. TARAN REESE M.D; FAX#: [phone]
[2017-07-24] MEDS: Metoclopramide 10mg/2ml Inj IVP PRN ×2 (05:48→12:02)
[2017-07-24 07:36] LABS: ANION GAP 8 mmol/L (5-15); CALCIUM 8.9 MG/DL (8.5-10.1); CARBON DIOXIDE 31 MMOL/L (21-32); CHLORIDE 104 MMOL/L (98-107); CREATININE 0.6 MG/DL (0.55-1.30); GLOMERULAR FILTRATION RATE > 60 mL/min (>60); LIPASE 602 U/L (73-393); POTASSIUM 2.8 MMOL/L (3.5-5.1); SODIUM 143 MMOL/L (136-145)
[2017-07-24 07:51] LABS: BASOPHILS % (AUTO) 0.9 % (0.0-2.0); EOSINOPHILS % (AUTO) 2.5 % (0.0-3.0); LYMPHOCYTES % (AUTO) 24.5 % (20.0-45.0); MEAN CORPUSCULAR HEMOGLOBIN 33.9 PG (27.0-31.0); MEAN CORPUSCULAR HGB CONC 33.4 G/DL (32.0-36.0); MEAN CORPUSCULAR VOLUME 102 FL (80-99); MEAN PLATELET VOLUME 8.2 FL (6.5-10.1); MONOCYTES % (AUTO) 8.9 % (1.0-10.0); NEUTROPHILS % (AUTO) 63.3 % (45.0-75.0); PLATELET COUNT 211 K/UL (150-450); RED BLOOD COUNT 3.22 M/UL (4.20-5.40); RED CELL DISTRIBUTION WIDTH 14.1 % (11.6-14.8); WHITE BLOOD COUNT 8.2 K/UL (4.8-10.8)
[2017-07-24 08:00] VITALS: BP 130/83
[2017-07-24] MEDS: Hydromorphone 0.5mg/0.5ml inj IVP PRN ×5 (08:51→21:08)
[2017-07-24] MEDS: Escitalopram Oxalate 5mg tab ORAL SCH (08:51)
[2017-07-24] MEDS: Pantoprazole Inj IV SCH (08:52)
[2017-07-24] MEDS: Heparin 5000 units/ml inj SUBQ SCH ×2 (08:57→21:28)
[2017-07-24 12:00] VITALS: BP 136/75
[2017-07-24] MEDS ORDERED: Potassium Chloride 60 MEQ in NS 1000ml 1,000 ML IV ONE (12:00)
[2017-07-24 16:00] VITALS: BP 128/70
[2017-07-24] MEDS ORDERED: D5 1/2NS 1000ml IV ONE (16:02)
[2017-07-24] MEDS ORDERED: Tubing IV Secondary IV ONE (16:02)
--- NOTE | 2017-07-24 17:24 | GI Progress Note ---
Assessment/Plan Problems: (1) Pancreatitis ICD Codes: K85.90 - Acute pancreatitis without necrosis or infection, unspecified SNOMED: [id number] Qualifiers: Qualified Codes: K85.90 - Acute pancreatitis without necrosis or infection, unspecified Status: progressing Status Narrative Discussed with Dr. Contreras. Assessment/Plan abdominal U/S reviewed >> CBD dilation 11mm CT AP reviewed >> Evidence of peripancreatic edema/phlegmon, consistent with nonnecrotizing nonhemorrhagic acute pancreatitis. Focal area of low attenuation within the pancreatic head/body junction, probably area of inflammation related to the pancreatitis. Mass much less likely. MRCP reviewed >> Mild extra hepatic biliary ductal ectasia, without definite downstream obstructing lesion. elevated lipase >> downtrending utox unremarkable triglyceride level WNL adv to soft diet pain mgmt fu CA19-9 ppi fu labs Subjective Gastrointestinal/Abdominal: Reports: abdominal pain Objective Last 24 Hour Vital Signs Date Time Temp Pulse Resp B/P (MAP) Pulse Ox O2 Delivery O2 Flow Rate FiO2 07/24/17 16:00 98.2 70 18 128/70 94 Room Air 07/24/17 12:00 98.1 66 18 136/75 95 Room Air 07/24/17 08:00 98.2 18 130/83 93 Room Air 07/24/17 04:00 98.1 69 18 116/64 97 Room Air 07/24/17 00:00 97.9 78 18 133/78 94 Room Air 07/23/17 19:57 98.1 86 20 145/81 95 Room Air Intake and Output 07/24/17 07/25/17 19:00 07:00 Intake Total 865.001 ml Balance 865.001 ml Intake IV Total 865.001 ml Laboratory Tests Test 07/24/17 04:40 White Blood Count 8.2 K/UL (4.8-10.8) Red Blood Count 3.22 M/UL (4.20-5.40) L Hemoglobin 10.9 G/DL (12.0-16.0) L Hematocrit 32.8 % (37.0-47.0) L Mean Corpuscular Volume 102 FL (80-99) H Mean Corpuscular Hemoglobin 33.9 PG (27.0-31.0) H Mean Corpuscular Hemoglobin Concent 33.4 G/DL (32.0-36.0) Red Cell Distribution Width 14.1 % (11.6-14.8) Platelet Count 211 K/UL (150-450) Mean Platelet Volume 8.2 FL (6.5-10.1) Neutrophils (%) (Auto) 63.3 % (45.0-75.0) Lymphocytes (%) (Auto) 24.5 % (20.0-45.0) Monocytes (%) (Auto) 8.9 % (1.0-10.0) Eosinophils (%) (Auto) 2.5 % (0.0-3.0) Basophils (%) (Auto) 0.9 % (0.0-2.0) Sodium Level 143 MMOL/L (136-145) Potassium Level 2.8 MMOL/L (3.5-5.1) L Chloride Level 104 MMOL/L (98-107) Carbon Dioxide Level 31 MMOL/L (21-32) Anion Gap 8 mmol/L (5-15) Blood Urea Nitrogen 8 mg/dL (7-18) Creatinine 0.6 MG/DL (0.55-1.30) Estimat Glomerular Filtration Rate > 60 mL/min (>60) Glucose Level 94 MG/DL (74-106) Calcium Level 8.9 MG/DL (8.5-10.1) Lipase 602 U/L (73-393) H Hepatitis A IgM Antibody Pending Hepatitis B Surface Antigen Pending Hepatitis B Core IgM Antibody Pending Hepatitis C Antibody Pending HIV (1&2) Antibody Rapid Negative (NEGATIVE) Height (Feet): 5 Height (Inches): 8.00 Weight (Pounds): 139 General Appearance: WD/WN, no apparent distress, alert Cardiovascular: normal rate Respiratory/Chest: normal breath sounds, no respiratory distress Abdominal Exam: normal bowel sounds, non tender, soft Extremities: normal range of motion, non-tender Fina Leal N.P. Jul 24, 2017 17:24
[2017-07-24 20:51] VITALS: BP 157/99
--- NOTE | 2017-07-24 20:59 | Infectious Diseases Prog Note ---
Assessment/Plan Assessment/Plan ASSESSMENT: 52 y/o female with: // Recurrent pancreatitis ?EtOH (3rd episode) - symptomatically improving, dec lipase. CA 19-9 pending - CT A/P: Evidence of peripancreatic edema/phlegmon, consistent with nonnecrotizing nonhemorrhagic acute pancreatitis. Focal area of low attenuation within the pancreatic head/body junction, probably area of inflammation related to the pancreatitis. Mass much less likely. - MRCP: Mild extra hepatic biliary ductal ectasia, without definite downstream obstructing lesion. Significance of this finding uncertain, possibly baseline for this patient. No definite intra-ductal calculi. No evidence of gallstones. - no gallstones, hypertriglyceridemia or hypercalcemia // Negative HIV // SIRS 2/2 above // Leukocytosis - resolved, afebrile // Hypokalemia // NKDA // Full Code PLAN: - no role for ABX at this time - f/u hepatitis panel - consider autoimmune w/u - f/u CA 19-9 - monitor CBC, temperatures - monitor BMP - supportive care - GI f/u ?ERCP Subjective Allergies: Coded Allergies: No Known Allergies (Unverified , 07/21/17) Subjective remains afebrile improved Objective Vital Signs Last 24 Hour Vital Signs Date Time Temp Pulse Resp B/P (MAP) Pulse Ox O2 Delivery O2 Flow Rate FiO2 07/24/17 20:51 98.4 74 20 157/99 96 Room Air 07/24/17 16:00 98.2 70 18 128/70 94 Room Air 07/24/17 12:00 98.1 66 18 136/75 95 Room Air 07/24/17 08:00 98.2 18 130/83 93 Room Air 07/24/17 04:00 98.1 69 18 116/64 97 Room Air 07/24/17 00:00 97.9 78 18 133/78 94 Room Air Height (Feet): 5 Height (Inches): 8.00 Weight (Pounds): 139 General Appearance: no acute distress Respiratory/Chest: no respiratory distress Cardiovascular: normal rate, regular rhythm Abdomen: normal bowel sounds, soft, non tender, non distended Laboratory Tests Test 07/24/17 04:40 White Blood Count 8.2 K/UL (4.8-10.8) Red Blood Count 3.22 M/UL (4.20-5.40) L Hemoglobin 10.9 G/DL (12.0-16.0) L Hematocrit 32.8 % (37.0-47.0) L Mean Corpuscular Volume 102 FL (80-99) H Mean Corpuscular Hemoglobin 33.9 PG (27.0-31.0) H Mean Corpuscular Hemoglobin Concent 33.4 G/DL (32.0-36.0) Red Cell Distribution Width 14.1 % (11.6-14.8) Platelet Count 211 K/UL (150-450) Mean Platelet Volume 8.2 FL (6.5-10.1) Neutrophils (%) (Auto) 63.3 % (45.0-75.0) Lymphocytes (%) (Auto) 24.5 % (20.0-45.0) Monocytes (%) (Auto) 8.9 % (1.0-10.0) Eosinophils (%) (Auto) 2.5 % (0.0-3.0) Basophils (%) (Auto) 0.9 % (0.0-2.0) Sodium Level 143 MMOL/L (136-145) Potassium Level 2.8 MMOL/L (3.5-5.1) L Chloride Level 104 MMOL/L (98-107) Carbon Dioxide Level 31 MMOL/L (21-32) Anion Gap 8 mmol/L (5-15) Blood Urea Nitrogen 8 mg/dL (7-18) Creatinine 0.6 MG/DL (0.55-1.30) Estimat Glomerular Filtration Rate > 60 mL/min (>60) Glucose Level 94 MG/DL (74-106) Calcium Level 8.9 MG/DL (8.5-10.1) Lipase 602 U/L (73-393) H Hepatitis A IgM Antibody Pending Hepatitis B Surface Antigen Pending Hepatitis B Core IgM Antibody Pending Hepatitis C Antibody Pending HIV (1&2) Antibody Rapid Negative (NEGATIVE) Current Medications Medications (Trade) Dose Ordered Sig/Kwesi Route PRN Reason Start Time Stop Time Status Last Admin Dose Admin Acetaminophen (Tylenol) 650 mg Q4H PRN ORAL fever 07/21/17 21:15 08/20/17 21:14 Acetaminophen/ Hydrocodone Bitart ([place] 5/325) 1 tab Q6H PRN ORAL For Pain Scale 4-6 07/21/17 21:15 07/28/17 21:14 Al Hydroxide/Mg Hydroxide (Mylanta II) 30 ml Q6H PRN ORAL dyspepsia 07/21/17 21:15 08/20/17 21:14 Dextrose (Dextrose 50%) STAT PRN IV Hypoglycemia 07/21/17 21:15 08/20/17 21:14 Dextrose/Sodium Chloride 1,000 ml @ 75 mls/hr [id number] IV 07/21/17 22:00 08/20/17 21:59 07/24/17 02:44 Diphenhydramine HCl (Benadryl) 25 mg Q6H PRN ORAL Itching/Pruritis 07/21/17 21:15 08/20/17 21:14 Escitalopram Oxalate (Lexapro) 5 mg DAILY ORAL 07/22/17 09:00 08/21/17 08:59 07/24/17 08:51 Heparin Sodium (Porcine) (Heparin 5000 units/ml) 5,000 units EVERY 12 HOURS SUBQ 07/22/17 09:00 08/21/17 08:59 07/24/17 08:57 Hydromorphone HCl (Dilaudid) 1 mg Q3H PRN IVP Severe Pain (Pain Scale 7-10) 07/24/17 08:45 07/29/17 10:29 07/24/17 18:03 Lorazepam (Ativan 2mg/ml 1ml) 1 mg Q4H PRN IV agitation 07/21/17 21:15 07/28/17 21:14 Metoclopramide HCl (Reglan) 10 mg Q6H PRN IVP SEVERE NAUSEA 07/21/17 21:15 08/20/17 21:14 07/24/17 12:02 Nitroglycerin (Ntg) 0.4 mg Q5M X 3 DOSES PRN SL Prn Chest Pain 07/21/17 21:15 08/20/17 21:14 Ondansetron HCl (Zofran) 4 mg Q6H PRN IVP Nausea & Vomiting 07/21/17 21:15 08/20/17 21:14 07/24/17 14:54 Pantoprazole (Protonix) 40 mg DAILY IV 07/22/17 09:00 08/21/17 08:59 07/24/17 08:52 Polyethylene Glycol (Miralax) 17 gm HSPRN PRN ORAL Constipation 07/21/17 21:15 08/20/17 21:14 Promethazine HCl (Phenergan) 25 mg Q8H PRN IV refractory nausea 07/21/17 21:15 08/20/17 21:14 Temazepam (Restoril) 15 mg HSPRN PRN ORAL Insomnia 07/21/17 21:15 07/28/17 21:14 07/23/17 20:18 MIRIAM CHÁVEZ Jul 24, 2017 20:59
--- NOTE | 2017-07-24 21:35 | Pulmonology Progress Note ---
Assessment/Plan Problems: (1) Pancreatitis Assessment/Plan CT reviewed Evidence of peripancreatic edema/phlegmon, consistent with nonnecrotizing nonhemorrhagic acute pancreatitis. symptomtic treatemnt iv fluids pain control advance diet lipase decreasing dc when ok with GI Subjective ROS Limited/Unobtainable: No Constitutional: Reports: no symptoms HEENT: Repors: no symptoms Allergies: Coded Allergies: No Known Allergies (Unverified , 07/21/17) Objective Last 24 Hour Vital Signs Date Time Temp Pulse Resp B/P (MAP) Pulse Ox O2 Delivery O2 Flow Rate FiO2 07/24/17 20:51 98.4 74 20 157/99 96 Room Air 07/24/17 16:00 98.2 70 18 128/70 94 Room Air 07/24/17 12:00 98.1 66 18 136/75 95 Room Air 07/24/17 08:00 98.2 18 130/83 93 Room Air 07/24/17 04:00 98.1 69 18 116/64 97 Room Air 07/24/17 00:00 97.9 78 18 133/78 94 Room Air Intake and Output 07/24/17 07/25/17 19:00 07:00 Intake Total 1758.335 ml Balance 1758.335 ml Intake Oral 550 ml IV Total 1208.335 ml # Voids 5 General Appearance: WD/WN HEENT: normocephalic, atraumatic Respiratory/Chest: chest wall non-tender, lungs clear Breasts: no masses Cardiovascular: normal peripheral pulses Abdomen: normal bowel sounds, soft, non tender Genitourinary: normal external genitalia Skin: no rash 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 Laboratory Tests 07/24/17 04:40: White Blood Count 8.2, Red Blood Count 3.22L, Hemoglobin 10.9L, Hematocrit 32.8L , Mean Corpuscular Volume 102H, Mean Corpuscular Hemoglobin 33.9H, Mean Corpuscular Hemoglobin Concent 33.4, Red Cell Distribution Width 14.1, Platelet Count 211, Mean Platelet Volume 8.2, Neutrophils (%) (Auto) 63.3, Lymphocytes (% ) (Auto) 24.5, Monocytes (%) (Auto) 8.9, Eosinophils (%) (Auto) 2.5, Basophils ( %) (Auto) 0.9, Sodium Level 143, Potassium Level 2.8L, Chloride Level 104, Carbon Dioxide Level 31, Anion Gap 8, Blood Urea Nitrogen 8, Creatinine 0.6, Estimat Glomerular Filtration Rate > 60, Glucose Level 94, Calcium Level 8.9, Lipase 602H, Hepatitis A IgM Antibody [Pending], Hepatitis B Surface Antigen [ Pending], Hepatitis B Core IgM Antibody [Pending], Hepatitis C Antibody [Pending ], HIV (1&2) Antibody Rapid Negative Current Medications Medications (Trade) Dose Ordered Sig/Kwesi Route PRN Reason Start Time Stop Time Status Last Admin Dose Admin Acetaminophen (Tylenol) 650 mg Q4H PRN ORAL fever 07/21/17 21:15 08/20/17 21:14 Acetaminophen/ Hydrocodone Bitart ([place] 5/325) 1 tab Q6H PRN ORAL For Pain Scale 4-6 07/21/17 21:15 07/28/17 21:14 Al Hydroxide/Mg Hydroxide (Mylanta II) 30 ml Q6H PRN ORAL dyspepsia 07/21/17 21:15 08/20/17 21:14 Dextrose (Dextrose 50%) STAT PRN IV Hypoglycemia 07/21/17 21:15 08/20/17 21:14 Dextrose/Sodium Chloride 1,000 ml @ 75 mls/hr [id number] IV 07/21/17 22:00 08/20/17 21:59 07/24/17 02:44 Diphenhydramine HCl (Benadryl) 25 mg Q6H PRN ORAL Itching/Pruritis 07/21/17 21:15 08/20/17 21:14 Escitalopram Oxalate (Lexapro) 5 mg DAILY ORAL 07/22/17 09:00 08/21/17 08:59 07/24/17 08:51 Heparin Sodium (Porcine) (Heparin 5000 units/ml) 5,000 units EVERY 12 HOURS SUBQ 07/22/17 09:00 08/21/17 08:59 07/24/17 21:28 Hydromorphone HCl (Dilaudid) 1 mg Q3H PRN IVP Severe Pain (Pain Scale 7-10) 07/24/17 08:45 07/29/17 10:29 07/24/17 21:08 Lorazepam (Ativan 2mg/ml 1ml) 1 mg Q4H PRN IV agitation 07/21/17 21:15 07/28/17 21:14 Metoclopramide HCl (Reglan) 10 mg Q6H PRN IVP SEVERE NAUSEA 07/21/17 21:15 08/20/17 21:14 07/24/17 12:02 Nitroglycerin (Ntg) 0.4 mg Q5M X 3 DOSES PRN SL Prn Chest Pain 07/21/17 21:15 08/20/17 21:14 Ondansetron HCl (Zofran) 4 mg Q6H PRN IVP Nausea & Vomiting 07/21/17 21:15 08/20/17 21:14 07/24/17 21:07 Pantoprazole (Protonix) 40 mg DAILY IV 07/22/17 09:00 08/21/17 08:59 07/24/17 08:52 Polyethylene Glycol (Miralax) 17 gm HSPRN PRN ORAL Constipation 07/21/17 21:15 08/20/17 21:14 Promethazine HCl (Phenergan) 25 mg Q8H PRN IV refractory nausea 07/21/17 21:15 08/20/17 21:14 Temazepam (Restoril) 15 mg HSPRN PRN ORAL Insomnia 07/21/17 21:15 07/28/17 21:14 07/24/17 21:29 SANTHOSH MAHER Jul 24, 2017 21:35
[2017-07-25] MEDS: Metoclopramide 10mg/2ml Inj IVP PRN ×2 (00:14→06:41)
[2017-07-25] MEDS: Hydromorphone 0.5mg/0.5ml inj IVP PRN ×4 (00:15→10:04)
[2017-07-25] MEDS: D5 1/2NS 1,000 ML IV SCH (00:24)
[2017-07-25 00:29] VITALS: BP 149/76
[2017-07-25 03:13] VITALS: BP 125/70
[2017-07-25 07:11] LABS: BASOPHILS % (AUTO) 1.2 % (0.0-2.0); EOSINOPHILS % (AUTO) 3.2 % (0.0-3.0); LYMPHOCYTES % (AUTO) 38.6 % (20.0-45.0); MEAN CORPUSCULAR HEMOGLOBIN 33.9 PG (27.0-31.0); MEAN CORPUSCULAR HGB CONC 33.4 G/DL (32.0-36.0); MEAN CORPUSCULAR VOLUME 102 FL (80-99); MEAN PLATELET VOLUME 7.4 FL (6.5-10.1); MONOCYTES % (AUTO) 9.5 % (1.0-10.0); NEUTROPHILS % (AUTO) 47.4 % (45.0-75.0); PLATELET COUNT 213 K/UL (150-450); RED BLOOD COUNT 2.95 M/UL (4.20-5.40); RED CELL DISTRIBUTION WIDTH 13.9 % (11.6-14.8); WHITE BLOOD COUNT 6.2 K/UL (4.8-10.8)
[2017-07-25 07:43] LABS: ANION GAP 7 mmol/L (5-15); CALCIUM 8.5 MG/DL (8.5-10.1); CARBON DIOXIDE 29 MMOL/L (21-32); CHLORIDE 107 MMOL/L (98-107); CREATININE 0.6 MG/DL (0.55-1.30); GLOMERULAR FILTRATION RATE > 60 mL/min (>60); LIPASE 399 U/L (73-393); POTASSIUM 3.2 MMOL/L (3.5-5.1); SODIUM 143 MMOL/L (136-145)
[2017-07-25 07:57] LABS: ALANINE AMINOTRANSFERASE 15 U/L (12-78); ALBUMIN/GLOBULIN RATIO 1.1 (1.0-2.7); AMYLASE 55 U/L (25-115); ANION GAP 8 mmol/L (5-15); ASPARTATE AMINO TRANSFERASE 14 U/L (15-37); CALCIUM 8.6 MG/DL (8.5-10.1); CARBON DIOXIDE 28 MMOL/L (21-32); CHLORIDE 107 MMOL/L (98-107); CREATININE 0.6 MG/DL (0.55-1.30); GLOMERULAR FILTRATION RATE > 60 mL/min (>60); POTASSIUM 3.3 MMOL/L (3.5-5.1); SODIUM 143 MMOL/L (136-145); TOTAL PROTEIN 5.5 G/DL (6.4-8.2)
[2017-07-25 08:00] VITALS: BP 109/62
--- NOTE | 2017-07-25 08:30 | Pulmonology Progress Note ---
Assessment/Plan Assessment/Plan ASSESSMENT Abdominal pain Acute non necrotizing non hemorrhagic pancreatitis Hypokalemia Hypomagnesemia leukocytosis-resolved hypercholesteremia possible ETOH abuse SIRS PLAN OF CARE MS floor IVF GI follows imaging noted Pain management PPI trend lipase, amylase: amylase down to normal, lipase down to 399 replace K and Mg diet as tolerated , tolerates a/emetic prn LFT stable TG WNL tox screen negative DVT prophylaxis GI cleared for dc ID follows no role of abx hep panel negative dc today case discussed and evaluated by supervising physician Subjective Allergies: Coded Allergies: No Known Allergies (Unverified , 07/21/17) Subjective leukocytosis resolved, pain improved lipase down to 399 K-3.3 Mg-1.5 Objective Last 24 Hour Vital Signs Date Time Temp Pulse Resp B/P (MAP) Pulse Ox O2 Delivery O2 Flow Rate FiO2 07/25/17 08:00 97.8 68 16 109/62 95 Room Air 07/25/17 03:45 97.2 07/25/17 03:13 97.2 67 20 125/70 96 Room Air 07/25/17 00:29 97.3 66 20 149/76 95 Room Air 07/24/17 20:51 98.4 74 20 157/99 96 Room Air 07/24/17 16:00 98.2 70 18 128/70 94 Room Air 07/24/17 12:00 98.1 66 18 136/75 95 Room Air General Appearance: WD/WN, no acute distress HEENT: normocephalic, atraumatic, anicteric, mucous membranes moist, PERRL Respiratory/Chest: chest wall non-tender, lungs clear, no respiratory distress , no accessory muscle use Cardiovascular: normal peripheral pulses, normal rate, regular rhythm, no JVD Abdomen: normal bowel sounds, soft, non tender, non distended Genitourinary: normal external genitalia Extremities: no edema Neurologic/Psychiatric: no motor/sensory deficits, alert, oriented x 3, responsive Musculoskeletal: normal muscle bulk Laboratory Tests 07/25/17 05:20: White Blood Count 6.2, Red Blood Count 2.95L, Hemoglobin 10.0L, Hematocrit 29.9L , Mean Corpuscular Volume 102H, Mean Corpuscular Hemoglobin 33.9H, Mean Corpuscular Hemoglobin Concent 33.4, Red Cell Distribution Width 13.9, Platelet Count 213, Mean Platelet Volume 7.4, Neutrophils (%) (Auto) 47.4, Lymphocytes (% ) (Auto) 38.6, Monocytes (%) (Auto) 9.5, Eosinophils (%) (Auto) 3.2H, Basophils (%) (Auto) 1.2, Erythrocyte Sedimentation Rate [Pending], Sodium Level 143, Potassium Level 3.3L, Chloride Level 107, Carbon Dioxide Level 28, Anion Gap 8, Blood Urea Nitrogen 8, Creatinine 0.6, Estimat Glomerular Filtration Rate > 60, Glucose Level 93, Calcium Level 8.6, Phosphorus Level [Pending], Magnesium Level [Pending], Total Bilirubin 0.4, Aspartate Amino Transf (AST/SGOT) 14L, Alanine Aminotransferase (ALT/SGPT) 15, Alkaline Phosphatase 54, C-Reactive Protein, Quantitative [Pending], Total Protein 5.5L, Albumin 2.9L, Globulin 2.6 , Albumin/Globulin Ratio 1.1, Amylase Level 55, Lipase 399H Current Medications Medications (Trade) Dose Ordered Sig/Kwesi Route PRN Reason Start Time Stop Time Status Last Admin Dose Admin Acetaminophen (Tylenol) 650 mg Q4H PRN ORAL fever 07/21/17 21:15 08/20/17 21:14 Acetaminophen/ Hydrocodone Bitart ([place] 5/325) 1 tab Q6H PRN ORAL For Pain Scale 4-6 07/21/17 21:15 07/28/17 21:14 Al Hydroxide/Mg Hydroxide (Mylanta II) 30 ml Q6H PRN ORAL dyspepsia 07/21/17 21:15 08/20/17 21:14 Dextrose (Dextrose 50%) STAT PRN IV Hypoglycemia 07/21/17 21:15 08/20/17 21:14 Dextrose/Sodium Chloride 1,000 ml @ 75 mls/hr [id number] IV 07/21/17 22:00 08/20/17 21:59 07/25/17 00:24 Diphenhydramine HCl (Benadryl) 25 mg Q6H PRN ORAL Itching/Pruritis 07/21/17 21:15 08/20/17 21:14 Escitalopram Oxalate (Lexapro) 5 mg DAILY ORAL 07/22/17 09:00 08/21/17 08:59 07/24/17 08:51 Heparin Sodium (Porcine) (Heparin 5000 units/ml) 5,000 units EVERY 12 HOURS SUBQ 07/22/17 09:00 08/21/17 08:59 07/24/17 21:28 Hydromorphone HCl (Dilaudid) 1 mg Q3H PRN IVP Severe Pain (Pain Scale 7-10) 07/24/17 08:45 07/29/17 10:29 07/25/17 06:42 Influenza Virus Vaccine Quadrival (Flu Vaccine Quadrivalent) 0.5 ml ONCE ONCE IM 07/25/17 09:00 07/25/17 09:01 UNV Lorazepam (Ativan 2mg/ml 1ml) 1 mg Q4H PRN IV agitation 07/21/17 21:15 07/28/17 21:14 Metoclopramide HCl (Reglan) 10 mg Q6H PRN IVP SEVERE NAUSEA 07/21/17 21:15 08/20/17 21:14 07/25/17 06:41 Nitroglycerin (Ntg) 0.4 mg Q5M X 3 DOSES PRN SL Prn Chest Pain 07/21/17 21:15 08/20/17 21:14 Ondansetron HCl (Zofran) 4 mg Q6H PRN IVP Nausea & Vomiting 07/21/17 21:15 08/20/17 21:14 07/25/17 03:14 Pantoprazole (Protonix) 40 mg DAILY IV 07/22/17 09:00 08/21/17 08:59 07/24/17 08:52 Polyethylene Glycol (Miralax) 17 gm HSPRN PRN ORAL Constipation 07/21/17 21:15 08/20/17 21:14 Promethazine HCl (Phenergan) 25 mg Q8H PRN IV refractory nausea 07/21/17 21:15 08/20/17 21:14 Temazepam (Restoril) 15 mg HSPRN PRN ORAL Insomnia 07/21/17 21:15 07/28/17 21:14 07/24/17 21:29 Am[facility]idesKn[facility] HospitalNatalie Gallardo NP Jul 25, 2017 08:30
[2017-07-25 08:39] LABS: CRP QUANT 6.4 mg/dL (0.00-0.90); MAGNESIUM 1.5 MG/DL (1.8-2.4); PHOSPHORUS 4.7 MG/DL (2.5-4.9)
[2017-07-25] MEDS: Escitalopram Oxalate 5mg tab ORAL SCH (10:04)
[2017-07-25] MEDS: Pantoprazole Inj IV SCH (10:04)
[2017-07-25] MEDS: Heparin 5000 units/ml inj SUBQ SCH (10:18)
--- NOTE | 2017-07-25 11:19 | GI Progress Note ---
Assessment/Plan Problems: (1) Pancreatitis ICD Codes: K85.90 - Acute pancreatitis without necrosis or infection, unspecified SNOMED: [id number] Qualifiers: Qualified Codes: K85.90 - Acute pancreatitis without necrosis or infection, unspecified Status: stable Status Narrative Discussed with Dr. Contreras. Assessment/Plan abdominal U/S reviewed >> CBD dilation 11mm CT AP reviewed >> Evidence of peripancreatic edema/phlegmon, consistent with nonnecrotizing nonhemorrhagic acute pancreatitis. Focal area of low attenuation within the pancreatic head/body junction, probably area of inflammation related to the pancreatitis. Mass much less likely. MRCP reviewed >> Mild extra hepatic biliary ductal ectasia, without definite downstream obstructing lesion. elevated lipase >> downtrending utox unremarkable triglyceride level WNL okay for DC per GI standpoint adv to soft diet pain mgmt fu CA19-9 ppi fu labs Subjective Gastrointestinal/Abdominal: Reports: abdominal pain - improved Subjective tolerating diet Objective Last 24 Hour Vital Signs Date Time Temp Pulse Resp B/P (MAP) Pulse Ox O2 Delivery O2 Flow Rate FiO2 07/25/17 08:00 97.8 68 16 109/62 95 Room Air 07/25/17 03:45 97.2 07/25/17 03:13 97.2 67 20 125/70 96 Room Air 07/25/17 00:29 97.3 66 20 149/76 95 Room Air 07/24/17 20:51 98.4 74 20 157/99 96 Room Air 07/24/17 16:00 98.2 70 18 128/70 94 Room Air 07/24/17 12:00 98.1 66 18 136/75 95 Room Air Laboratory Tests Test 07/25/17 05:20 White Blood Count 6.2 K/UL (4.8-10.8) Red Blood Count 2.95 M/UL (4.20-5.40) L Hemoglobin 10.0 G/DL (12.0-16.0) L Hematocrit 29.9 % (37.0-47.0) L Mean Corpuscular Volume 102 FL (80-99) H Mean Corpuscular Hemoglobin 33.9 PG (27.0-31.0) H Mean Corpuscular Hemoglobin Concent 33.4 G/DL (32.0-36.0) Red Cell Distribution Width 13.9 % (11.6-14.8) Platelet Count 213 K/UL (150-450) Mean Platelet Volume 7.4 FL (6.5-10.1) Neutrophils (%) (Auto) 47.4 % (45.0-75.0) Lymphocytes (%) (Auto) 38.6 % (20.0-45.0) Monocytes (%) (Auto) 9.5 % (1.0-10.0) Eosinophils (%) (Auto) 3.2 % (0.0-3.0) H Basophils (%) (Auto) 1.2 % (0.0-2.0) Erythrocyte Sedimentation Rate 47 MM/HR (0-30) H Sodium Level 143 MMOL/L (136-145) Potassium Level 3.3 MMOL/L (3.5-5.1) L Chloride Level 107 MMOL/L (98-107) Carbon Dioxide Level 28 MMOL/L (21-32) Anion Gap 8 mmol/L (5-15) Blood Urea Nitrogen 8 mg/dL (7-18) Creatinine 0.6 MG/DL (0.55-1.30) Estimat Glomerular Filtration Rate > 60 mL/min (>60) Glucose Level 93 MG/DL (74-106) Calcium Level 8.6 MG/DL (8.5-10.1) Phosphorus Level 4.7 MG/DL (2.5-4.9) Magnesium Level 1.5 MG/DL (1.8-2.4) L Total Bilirubin 0.4 MG/DL (0.2-1.0) Aspartate Amino Transf (AST/SGOT) 14 U/L (15-37) L Alanine Aminotransferase (ALT/SGPT) 15 U/L (12-78) Alkaline Phosphatase 54 U/L (46-116) C-Reactive Protein, Quantitative 6.4 mg/dL (0.00-0.90) H Total Protein 5.5 G/DL (6.4-8.2) L Albumin 2.9 G/DL (3.4-5.0) L Globulin 2.6 g/dL Albumin/Globulin Ratio 1.1 (1.0-2.7) Amylase Level 55 U/L (25-115) Lipase 399 U/L (73-393) H Height (Feet): 5 Height (Inches): 8.00 Weight (Pounds): 139 General Appearance: WD/WN, no apparent distress, alert Cardiovascular: normal rate Respiratory/Chest: normal breath sounds, no respiratory distress Abdominal Exam: normal bowel sounds, non tender, soft Extremities: normal range of motion, non-tender Fina Leal N.P. Jul 25, 2017 11:19
[2017-07-25] MEDS ORDERED: Flu Vaccine Quadrivalent 0.5ml IM ONE (11:30)
--- NOTE | 2017-07-25 11:38 | Infectious Diseases Prog Note ---
Assessment/Plan Assessment/Plan ASSESSMENT: 52 y/o female with: // Recurrent pancreatitis ?EtOH (3rd episode) - symptomatically improving, dec lipase. CA 19-9 pending - CT A/P: Evidence of peripancreatic edema/phlegmon, consistent with nonnecrotizing nonhemorrhagic acute pancreatitis. Focal area of low attenuation within the pancreatic head/body junction, probably area of inflammation related to the pancreatitis. Mass much less likely. - MRCP: Mild extra hepatic biliary ductal ectasia, without definite downstream obstructing lesion. Significance of this finding uncertain, possibly baseline for this patient. No definite intra-ductal calculi. No evidence of gallstones. - no gallstones, hypertriglyceridemia or hypercalcemia // Negative HIV // SIRS 2/2 above // Leukocytosis - resolved, afebrile - hepatitis panel :neg // Hypokalemia // NKDA // Full Code PLAN: - no role for ABX at this time - consider autoimmune w/u - f/u CA 19-9 - monitor CBC, temperatures - monitor BMP - supportive care - GI f/u Subjective Constitutional: Denies: no symptoms, fever, chills, fatigue, anorexia, drenching sweats, other Allergies: Coded Allergies: No Known Allergies (Unverified , 07/21/17) Objective Vital Signs Last 24 Hour Vital Signs Date Time Temp Pulse Resp B/P (MAP) Pulse Ox O2 Delivery O2 Flow Rate FiO2 07/25/17 08:00 97.8 68 16 109/62 95 Room Air 07/25/17 03:45 97.2 07/25/17 03:13 97.2 67 20 125/70 96 Room Air 07/25/17 00:29 97.3 66 20 149/76 95 Room Air 07/24/17 20:51 98.4 74 20 157/99 96 Room Air 07/24/17 16:00 98.2 70 18 128/70 94 Room Air 07/24/17 12:00 98.1 66 18 136/75 95 Room Air Height (Feet): 5 Height (Inches): 8.00 Weight (Pounds): 139 HEENT: anicteric Respiratory/Chest: no respiratory distress Cardiovascular: regular rhythm Abdomen: no organomegaly Laboratory Tests Test 07/25/17 05:20 White Blood Count 6.2 K/UL (4.8-10.8) Red Blood Count 2.95 M/UL (4.20-5.40) L Hemoglobin 10.0 G/DL (12.0-16.0) L Hematocrit 29.9 % (37.0-47.0) L Mean Corpuscular Volume 102 FL (80-99) H Mean Corpuscular Hemoglobin 33.9 PG (27.0-31.0) H Mean Corpuscular Hemoglobin Concent 33.4 G/DL (32.0-36.0) Red Cell Distribution Width 13.9 % (11.6-14.8) Platelet Count 213 K/UL (150-450) Mean Platelet Volume 7.4 FL (6.5-10.1) Neutrophils (%) (Auto) 47.4 % (45.0-75.0) Lymphocytes (%) (Auto) 38.6 % (20.0-45.0) Monocytes (%) (Auto) 9.5 % (1.0-10.0) Eosinophils (%) (Auto) 3.2 % (0.0-3.0) H Basophils (%) (Auto) 1.2 % (0.0-2.0) Erythrocyte Sedimentation Rate 47 MM/HR (0-30) H Sodium Level 143 MMOL/L (136-145) Potassium Level 3.3 MMOL/L (3.5-5.1) L Chloride Level 107 MMOL/L (98-107) Carbon Dioxide Level 28 MMOL/L (21-32) Anion Gap 8 mmol/L (5-15) Blood Urea Nitrogen 8 mg/dL (7-18) Creatinine 0.6 MG/DL (0.55-1.30) Estimat Glomerular Filtration Rate > 60 mL/min (>60) Glucose Level 93 MG/DL (74-106) Calcium Level 8.6 MG/DL (8.5-10.1) Phosphorus Level 4.7 MG/DL (2.5-4.9) Magnesium Level 1.5 MG/DL (1.8-2.4) L Total Bilirubin 0.4 MG/DL (0.2-1.0) Aspartate Amino Transf (AST/SGOT) 14 U/L (15-37) L Alanine Aminotransferase (ALT/SGPT) 15 U/L (12-78) Alkaline Phosphatase 54 U/L (46-116) C-Reactive Protein, Quantitative 6.4 mg/dL (0.00-0.90) H Total Protein 5.5 G/DL (6.4-8.2) L Albumin 2.9 G/DL (3.4-5.0) L Globulin 2.6 g/dL Albumin/Globulin Ratio 1.1 (1.0-2.7) Amylase Level 55 U/L (25-115) Lipase 399 U/L (73-393) H Current Medications Medications (Trade) Dose Ordered Sig/Kwesi Route PRN Reason Start Time Stop Time Status Last Admin Dose Admin Acetaminophen (Tylenol) 650 mg Q4H PRN ORAL fever 07/21/17 21:15 08/20/17 21:14 Acetaminophen/ Hydrocodone Bitart ([place] 5/325) 1 tab Q6H PRN ORAL For Pain Scale 4-6 07/21/17 21:15 07/28/17 21:14 Al Hydroxide/Mg Hydroxide (Mylanta II) 30 ml Q6H PRN ORAL dyspepsia 07/21/17 21:15 08/20/17 21:14 Dextrose (Dextrose 50%) STAT PRN IV Hypoglycemia 07/21/17 21:15 08/20/17 21:14 Dextrose/Sodium Chloride 1,000 ml @ 75 mls/hr [id number] IV 07/21/17 22:00 08/20/17 21:59 07/25/17 00:24 Diphenhydramine HCl (Benadryl) 25 mg Q6H PRN ORAL Itching/Pruritis 07/21/17 21:15 08/20/17 21:14 Escitalopram Oxalate (Lexapro) 5 mg DAILY ORAL 07/22/17 09:00 08/21/17 08:59 07/25/17 10:04 Heparin Sodium (Porcine) (Heparin 5000 units/ml) 5,000 units EVERY 12 HOURS SUBQ 07/22/17 09:00 08/21/17 08:59 07/25/17 10:18 Hydromorphone HCl (Dilaudid) 1 mg Q3H PRN IVP Severe Pain (Pain Scale 7-10) 07/24/17 08:45 07/29/17 10:29 07/25/17 10:04 Lorazepam (Ativan 2mg/ml 1ml) 1 mg Q4H PRN IV agitation 07/21/17 21:15 07/28/17 21:14 Magnesium Oxide (Mag-Ox 400mg) 400 mg BID ORAL 07/25/17 11:00 08/24/17 10:59 UNV Magnesium Sulfate 100 ml @ 100 mls/hr Q1H IVPB 07/25/17 10:00 07/25/17 11:59 Metoclopramide HCl (Reglan) 10 mg Q6H PRN IVP SEVERE NAUSEA 07/21/17 21:15 08/20/17 21:14 07/25/17 06:41 Nitroglycerin (Ntg) 0.4 mg Q5M X 3 DOSES PRN SL Prn Chest Pain 07/21/17 21:15 08/20/17 21:14 Ondansetron HCl (Zofran) 4 mg Q6H PRN IVP Nausea & Vomiting 07/21/17 21:15 08/20/17 21:14 07/25/17 10:05 Pantoprazole (Protonix) 40 mg DAILY IV 07/22/17 09:00 08/21/17 08:59 07/25/17 10:04 Polyethylene Glycol (Miralax) 17 gm HSPRN PRN ORAL Constipation 07/21/17 21:15 08/20/17 21:14 Promethazine HCl (Phenergan) 25 mg Q8H PRN IV refractory nausea 07/21/17 21:15 08/20/17 21:14 Temazepam (Restoril) 15 mg HSPRN PRN ORAL Insomnia 07/21/17 21:15 07/28/17 21:14 07/24/17 21:29 TARAN REESE M.D. Jul 25, 2017 11:38
[2017-07-25] MEDS ORDERED: MAG-OX 400400 MG ORAL (11:48)
[2017-07-25 11:50] VITALS: BP 150/75
[2017-07-25] MEDS ORDERED: Magnesium Oxide 400mg tab ORAL SCH (12:00)
[2017-07-25] MEDS ORDERED: D5 1/2NS 1000ml IV ONE (12:24)
--- NOTE | 2017-07-25 15:22 | General Progress Note ---
Progress Note Progress Note ADDEDNDUM: went to room to give script for magnesium oxide, Patient became verbally abusive; when I asked why she is insulting me, she became even more anxious and used profanity words. I called charge nurse Geeta Yoon to be in the room. Patient stated that she got upset when I told her that she will be discharged. She stated that she lives in [place] and need to get a ticket. In response, I said that she is welcome to stay to make all necessary phone arrangements , but she is discharged today and this is not the hotel. Patient did not denied that she used profanity and insulted me Trying to deescalate the situation, I left and notify my supervising physician dr Fox about incident. dr Fox spoke with patient prior to her discharge [facility]idesHealth SystemNatalie Gallardo NP Jul 25, 2017 15:22
--- NOTE | 2017-07-28 09:11 | Discharge Summary ---
Discharge Summary Hospital Course Date of Admission Jul 21, 2017 at 16:50 Date of Discharge Jul 25, 2017 at 12:25 Admitting Diagnosis pancreatitis HPI Evelia Ling is a 52 year old female who was admitted on Jul 21, 2017 at 16:50 for Pancreatitis Hospital Course marifer khoury #[id number] Discharge Medications New Medications: Magnesium Oxide (Magnesium Oxide) 400 Mg Tablet 400 MG ORAL BID, #6 TAB Continued Medications: Escitalopram Oxalate* (Lexapro*) 10 Mg Tablet 5 MG ORAL DAILY, TAB Omeprazole (Omeprazole) 40 Mg Capsule.dr 40 MG ORAL DAILY, CAP Discharge Discharge Disposition Patient was discharged to Home (01) Discharge Diagnoses: Amos (Roderick),Natalie BURCIAGA Jul 28, 2017 09:11
--- NOTE | 2017-07-29 01:00 | Discharge Summary 2 SIG ---
DATE OF ADMISSION: 07/21/2017 DATE OF DISCHARGE: 07/25/2017 REASON FOR ADMISSION: A 52-year-old female with history of recurrent pancreatitis, visiting from [place], presented to emergency department with complaints of abdominal pain and bloating. White blood count was 15.7, lipase -11,922, and amylase -1413. Abdominal ultrasound revealed prominent pancreas, fluid in the ana maria hepatis, likely related to stated clinical history of acute pancreatitis. Negative for gallstones. Positive Brantley sign, possibly due to adjacent pancreatic abnormality, but the possibility of acalculus acute cholecystitis should be considered. The patient was admitted with acute pancreatitis , abdominal pain, and leukocytosis. HOSPITAL COURSE: The patient was admitted. The patient placed on Medical/Surgical floor. The patient initially as kept NPO and started on IV hydration. GIalong with ID consults were requested. Pain management provided. Abdominal MRI subsequently revealed mild extrahepatic biliary ductal ectasia without definite downstream obstructive lesion. No evidence of gallstones. No definite intraductal calculi. Fairly extensive peripancreatic fluid, possibly phlegmon related to known history of acute pancreatitis. Mikey videcne to suggest acalculous cholecystitis. ID consult was requested due to leukocytosis. Per ID, the patient had systemic inflammatory response syndrome secondary to recurrent pancreatitis. HIV status was checked, negative. Hepatitis panel was negative. According to ID, there was no role for antibiotic at that time. Supportive care was provided. GI specialist clsoely followed. Urine toxicology screen was positive for benzodiazepine and opiates. Lipid panel revealed triglycerides within normal limits, but elevated total cholesterol and LDL. The patient was educated on low cholesterol diet and need to check the lipid panel in 3 months. At this time, trial of therapeutic lifestyle changes. If the cholesterol still elevated after 3 months, recommended to start pharmacological therapy. The patient was started on PPI. Antiemetic provided as needed. Subsequently, CT of the abdomen and pelvis was done, which revealed evidence of peripancreatic edema/phlegmon consistent with non-necrotizing, nonhemorrhagic acute pancreatitis. Leukocytosis resolved in 2 days. The patient was slowly started on diet and advanced as tolerated. Antiemetic provided as needed. Electrolyte imbalances (hypokalemia and hypomagnesemia) were addressed. Lipase and amylase were trending. Lipase down to 399 and amylase down to normal -55. The patient pain free and stable for discharge. Leukocytosis resolved. Etiology of recurrent pancreatitis at this time unknown, possibly related to alcohol abuse. CA 19-9 was ordered by GI, still pending. LFTs were stable. DVT prophylaxis provided. GI cleared for discharge. The patient was stable for discharge. Follow up with the primary medical doctor. FINAL DIAGNOSES: 1. Abdominal pain, 2. Acute, nonnecrotizing, nonhemorrhagic pancreatitis. 3. Hypokalemia. 4. Hypomagnesemia. 5. Leukocytosis, resolved. 6. Systemic inflammatory response syndrome. 7. Hypercholesterolemia. 8. Possible alcohol abuse. DISCHARGE MEDICATIONS: See medication reconciliation list. Prescription given for replacement of magnesium for additional few days. DISCHARGE INSTRUCTIONS: The patient to follow up with the primary medical doctor. Check lipid panel in 3 months and intiiate pharmacological therapy if no improvement. At this time, consider therapeutic lifestyle changes. Recommended to follow up to see primary doctor next week and check magnesium. The patient did not admit using alcohol, however, the patient was counseled on limitation of alcohol intake. Torrey Fox M.D. [facility]) N.PJuan DR: Jose Angel JOB#: [id number] CC: ERAN
== END 2017-07-25 12:25 | disposition home or self-care (01) | DRG 440 ==
LOC: EDBD 14:05 → EMR 14:58 → 4W 16:50 → EDBEDREQ 17:13
DX: K85.90 Acute pancreatitis without necrosis or infection, unspecified (principal); E83.42 Hypomagnesemia; E87.6 Hypokalemia; E78.00 Pure hypercholesterolemia, unspecified; F10.10 Alcohol abuse, uncomplicated; Z23 Encounter for immunization
CPT/HCPCS: 36415; 74177; 74181; 76700; 80048; 80053; 80061; 80306; 82150; 82607; 82746; 83690; 83735; 84100; 85007; 85025; 85610; 85651; 85730; 86140; 86703; 86705; 86709; 86803; 87340; 90630; 99285; J2405; J2765; J8499